=== PATIENT | male | born 1935 | race Caucasian/White ===

== ENCOUNTER 2016-11-27 18:27 | Emergency (ER) | payer BC ==
[~2016-11-27] VITALS: Ht 170.2 cm; Wt 77.7 kg
[~2016-11-27 18:27] MED LIST: ACYC400T PO; ASPEC81 PO; CALCTAB5 PO; CARB25TA12 PO; CARB50TA3 PO; CHOL100010 PO; CYCL5TAB PO; ROTI1DIS3 TOP
[2016-11-27 19:05] VITALS: TEMP 36.5; Ht 170.2 cm; Wt 77.7 kg
--- NOTE | 2016-11-27 20:08 | EMERGENCY ROOM VISIT NOTE ---
History Report prepared by Robbie: Tavo Sanders Under the Supervision of: Dr. Aimee Chambers M.D. First contact with patient: 19:52 Chief Complaint: RESPIRATORY PROBLEMS Stated Complaint: SOB, SAID CARDIAC ISSUE Nursing Triage Summary: Reports sob since 1600 History of Present Illness The patient is an 81 year old male who presents to the Emergency Room with complaints of intermittent shortness of breath that began at 1600, two hours prior to arrival. The patient states that he initially noticed being short of breath early this morning after swimming. But was not exerting himself when his SOB onset at 1600. Pt states he woke from a nap and noticed the increased WOB. He denies any chest or abdominal pain at anytime. He denies any cardiac history or failure, but does have a history of Parkinson's disease. 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 A total of 10 systems reviewed and were otherwise negative. 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) (5) Parkinsons disease (6) Waldenstrom macroglobulinemia Surgical Problems: (1) H/O arthroscopic knee surgery (2) S/P appendectomy Family History No pertinent family history Social History Smoking Status: Never Smoker Drug Use: none Marital Status: Housing Status: lives with significant other Occupation Status: retired Current/Historical Medications Scheduled Aspirin (Aspirin Ec), 81 MG PO DAILY Calcium Carbonate-Vitamin D (Calcium 600 + D), 1 TAB PO BID Carbidopa/Levodopa (Sinemet 25MG/100MG), 2 TABS PO QID Carbidopa/Levodopa (Sinemet Cr 50MG/200MG), 1 TAB PO HS Cholecalciferol (Vitamin D), 2,000 INTER.UNIT PO DAILY Clonazepam (Clonazepam), 0.5 MG PO HS Levofloxacin (Levaquin), 500 MG PO DAILY Rotigotine (Neupro), 3 MG TOP DAILY Selegiline Hcl (Eldepryl), 5 MG PO BID Allergies Coded Allergies: Penicillins (Verified Allergy, Mild, 08/21/14) Physical Exam Vital Signs Date Time Temp Pulse Resp B/P Pulse Ox O2 Delivery O2 Flow Rate FiO2 11/27/16 22:28 89 20 129/69 97 11/27/16 20:59 65 11/27/16 19:08 96 Room Air 11/27/16 19:05 36.5 82 16 133/84 96 Room Air Physical Exam Vital signs reviewed. General: Well-appearing elderly male, in no significant distress. HEENT: No scleral icterus, PERRLA, neck supple. Atraumatic. Cardiovascular: Implanted deep brain stimulator in chest. Regular rate and rhythm, no extra sounds. Pulmonary: Clear to auscultation bilaterally, normal work of breathing. Abdomen: Soft, nontender, nondistended, positive bowel sounds. Musculoskeletal: Atraumatic, no peripheral edema. Neurologic: Patient awake alert and oriented x 3. Flat facial expression, stiff movements with Parkinsonian like features. Skin: Warm, dry, no rash Medical Decision & Procedures ER Provider Diagnostic Interpretation: X-ray results as stated below per my interpretation and radiologist interpretation. Other radiology results as stated below per my review and radiologist interpretation: CHEST 2 VIEWS ROUTINE CLINICAL HISTORY: Shortness of breath. COMPARISON STUDY: Chest radiograph September 08, 2016. FINDINGS: An electronic device projecting of the left hemithorax is noted. Cardiomegaly is unchanged. There is no evidence of pulmonary edema. No pneumothorax or pleural effusion is present. There is apparent patchy right upper lung airspace opacity. This is new since prior exam. IMPRESSION: Mild right upper lung opacity which may reflect a small area of pneumonia. Post treatment radiographs are recommended to ensure resolution. Electronically signed by: Nhan Gallardo M.D. 11/27/2016 9:25 PM Dictated Date/Time: 11/27/2016 9:23 PM Laboratory Results 11/27/16 20:40 Red Blood Count 4.52, Mean Corpuscular Volume 96.5, Mean Corpuscular Hemoglobin 33.2, Mean Corpuscular Hemoglobin Concent 34.4, Mean Platelet Volume 10.4, Neutrophils (%) (Auto) 71.2, Lymphocytes (%) (Auto) 17.2, Monocytes (%) (Auto) 10.2, Eosinophils (%) (Auto) 0.9, Basophils (%) (Auto) 0.2, Neutrophils # (Auto ) 4.58, Lymphocytes # (Auto) 1.11, Monocytes # (Auto) 0.66, Eosinophils # (Auto ) 0.06, Basophils # (Auto) 0.01 11/27/16 20:40 Test 11/27/16 20:20 11/27/16 20:40 11/27/16 20:45 Urine Color YELLOW Urine Appearance CLEAR (CLEAR) Urine pH 6.0 (4.5-7.5) Urine Specific [place] 1.004 (1.000-1.030) Urine Protein NEG (NEG) Urine Glucose (UA) NEG (NEG) Urine Ketones NEG (NEG) Urine Occult Blood NEG (NEG) Urine Nitrite NEG (NEG) Urine Bilirubin NEG (NEG) Urine Urobilinogen NEG (NEG) Urine Leukocyte Esterase NEG (NEG) White Blood Count 6.44 K/uL (4.8-10.8) Red Blood Count 4.52 M/uL (4.7-6.1) Hemoglobin 15.0 g/dL (14.0-18.0) Hematocrit 43.6 % (42-52) Mean Corpuscular Volume 96.5 fL (80-100) Mean Corpuscular Hemoglobin 33.2 pg (25-34) Mean Corpuscular Hemoglobin Concent 34.4 g/dl (32-36) Platelet Count 210 K/uL (130-400) Mean Platelet Volume 10.4 fL (7.4-10.4) Neutrophils (%) (Auto) 71.2 % Lymphocytes (%) (Auto) 17.2 % Monocytes (%) (Auto) 10.2 % Eosinophils (%) (Auto) 0.9 % Basophils (%) (Auto) 0.2 % Neutrophils # (Auto) 4.58 K/uL (1.4-6.5) Lymphocytes # (Auto) 1.11 K/uL (1.2-3.4) Monocytes # (Auto) 0.66 K/uL (0.11-0.59) Eosinophils # (Auto) 0.06 K/uL (0-0.5) Basophils # (Auto) 0.01 K/uL (0-0.2) RDW Standard Deviation 45.6 fL (36.4-46.3) RDW Coefficient of Variation 13.0 % (11.5-14.5) Immature Granulocyte % (Auto) 0.3 % Immature Granulocyte # (Auto) 0.02 K/uL (0.00-0.02) Anion Gap 10.0 mmol/L (3-11) Est Creatinine Clear Calc Drug Dose 48.4 ml/min Estimated GFR () 72.1 Estimated GFR (Non- 62.2 BUN/Creatinine Ratio 20.5 (10-20) Calcium Level 9.2 mg/dl (8.5-10.1) Magnesium Level 2.2 mg/dl (1.8-2.4) Total Bilirubin 0.4 mg/dl (0.2-1) Direct Bilirubin 0.1 mg/dl (0-0.2) Aspartate Amino Transf (AST/SGOT) 21 U/L (15-37) Alanine Aminotransferase (ALT/SGPT) 9 U/L (12-78) Alkaline Phosphatase 96 U/L (45-117) Total Protein 7.8 gm/dl (6.4-8.2) Albumin 3.6 gm/dl (3.4-5.0) Lipase 57 U/L (73-393) Bedside Troponin I 0.000 ng/ml (0-0.045) [id number] Natriuretic Peptide 70 pg/ml (0-1800) Laboratory results per my review. Medications Administered Medications (Trade) Dose Ordered Sig/See Route Start Time Stop Time Status Last Admin Dose Admin Levofloxacin (Levaquin Tab) 500 mg NOW ONCE PO 11/27/16 22:00 11/27/16 22:01 DC 11/27/16 22:15 500 MG Levofloxacin (Levaquin Tab) 500 mg NOW STAT PO 11/27/16 21:58 11/27/16 22:00 DC 11/27/16 22:15 500 MG ECG Indication: SOB/dyspnea Rate (beats per minute): 64 Rhythm: normal sinus Findings: T-wave inversion (Anterior), no acute ischemic change, no ectopy, other (Poor quality baseline for interpretation secondary to deep brain stimulator) ED Course 1954: Past medical records reviewed. The patient was evaluated in room B4. A complete history and physical examination was performed. 2157: Ordered Levofloxacin 500 mg PO. 2221: Upon reevaluation, the patient appeared was resting in bed. His shortness of breath was relieved. I discussed findings with him. He verbalized agreement of the treatment plan. The patient was discharged home. Medical Decision Differential diagnosis: Etiologies such as infections, reactive airway disease, pneumonia, pneumothorax , COPD, CHF, cardiac ischemia, pulmonary embolism, musculoskeletal, gastrointestinal, as well as others were entertained. This pt was evaluated and appeared to be in no distress. PE is significant for Parkinsonian like features, but he otherwise appears well. Lab work reveals a normal WBC and negative cardiac enzymes. EKG reveals T wave inversions laterally. CXR is significant for a small infiltrate. Pt was given levaquin 500 mg po and 500 mg for tomorrow. A Rx was sent to Pharmacy for 5 more days. Pt was d/c to care of his and will f/u with PCP this week for reevaluation. He will return to the ED for worsening of symptoms or any medical concerns. Impression Primary Impression: Pneumonia Scribe Attestation The scribe's documentation has been prepared under my direction and personally reviewed by me in its entirety. I confirm that the note above accurately reflects all work, treatment, procedures, and medical decision making performed by me. Departure Information Dispostion Home / Self-Care Prescriptions Levofloxacin (Levaquin) 500 Mg Tab 500 MG PO DAILY for 5 Days, #5 TAB Prov: Aimee Chambers M.D. 11/27/16 Referrals No Doctor, Assigned (PCP) Forms HOME CARE DOCUMENTATION FORM, IMPORTANT VISIT INFORMATION, WORK / SCHOOL INSTRUCTIONS Patient Instructions My [facility] Additional Instructions Diagnosis: Pneumonia Levaquin 500 mg daily for 7 days total. Drink plenty of clear fluids. Follow-up with your physician later this week for reevaluation. You will require a repeat chest x-ray to ensure resolution of the pneumonia. Return to the emergency department for worsening of symptoms or any medical concerns. Problem Qualifiers Primary Impression: Pneumonia Pneumonia type: due to unspecified organism Laterality: right Lung location : upper lobe of lung Qualified Codes: J18.1 - Lobar pneumonia, unspecified organism
[2016-11-27 20:51] LABS: BASO % 0.2 %; BASO ABS # 0.01 K/uL (0-0.2); COMPLETE YES; EOS % 0.9 %; HEMATOCRIT 43.6 % (42-52); IG% 0.3 %; LYMPH % 17.2 %; LYMPH ABS # 1.11 K/uL (1.2-3.4); MEAN CELL VOLUME 96.5 fL (80-100); MEAN CORPUSCULAR HEMOGLOBIN 33.2 pg (25-34); MEAN CORPUSCULAR HGB CONC 34.4 g/dl (32-36); MEAN PLATELET VOLUME 10.4 fL (7.4-10.4); MONO % 10.2 %; NEUT % 71.2 %; PLATELET COUNT 210 K/uL (130-400); RED BLOOD COUNT 4.52 M/uL (4.7-6.1); WHITE BLOOD COUNT 6.44 K/uL (4.8-10.8)
[2016-11-27 20:56] LABS: URINE APPEARANCE CLEAR (CLEAR); URINE BILIRUBIN NEG (NEG); URINE COLOR YELLOW; URINE NITRITE NEG (NEG); URINE SPECIFIC GRAVITY 1.004 (1.000-1.030); UROBILINOGEN NEG (NEG); ZZUR CULT IF INDIC CLEAN CATCH NO
[2016-11-27 21:00] LABS: MANUAL MICROSCOPIC REQUIRED? NO; REVIEW REQ? NO
[2016-11-27] MEDS ORDERED: CHOL200010 PO (21:09)
[2016-11-27] MEDS ORDERED: ASPI81TA28 PO (21:09)
[2016-11-27] MEDS ORDERED: SELE5CAP2 PO (21:09)
[2016-11-27] MEDS ORDERED: CALC-20 PO (21:09)
[2016-11-27] MEDS ORDERED: KLN5X PO (21:09)
[2016-11-27 21:12] LABS: BUN/CREATININE RATIO 20.5 (10-20); CALCIUM 9.2 mg/dl (8.5-10.1); CREATININE 1.1 mg/dl (0.60-1.40); MAGNESIUM 2.2 mg/dl (1.8-2.4); POTASSIUM 4.2 mmol/L (3.5-5.1)
--- NOTE | 2016-11-27 21:26 | DIAGNOSTIC IMAGING REPORT ---
CHEST 2 VIEWS ROUTINE CLINICAL HISTORY: Shortness of breath. COMPARISON STUDY: Chest radiograph September 08, 2016. FINDINGS: An electronic device projecting of the left hemithorax is noted. Cardiomegaly is unchanged. There is no evidence of pulmonary edema. No pneumothorax or pleural effusion is present. There is apparent patchy right upper lung airspace opacity. This is new since prior exam. IMPRESSION: Mild right upper lung opacity which may reflect a small area of pneumonia. Post treatment radiographs are recommended to ensure resolution. Electronically signed by: Nhan Gallardo M.D. 11/27/2016 9:25 PM Dictated Date/Time: 11/27/2016 9:23 PM
[2016-11-27] MEDS ORDERED: LEVAQUIN 500MG / 100ML D5W IV ONE (21:45)
[2016-11-27] MEDS ORDERED: LEVOFLOXACIN 500 MG TAB PO STA (21:58)
[2016-11-27] MEDS ORDERED: LEVOFLOXACIN 250 MG TAB PO ONE (22:00)
[2016-11-27] MEDS ORDERED: LEVO-366 PO (22:07)
[2016-11-27 22:28] VITALS: BP 129/69; PULSE 89; O2SAT 97
== END 2016-11-27 22:20 | disposition home or self-care (01) ==
LOC: C.EDB 18:28
DX: J18.1 Lobar pneumonia, unspecified organism (principal); G20 Parkinson's disease; D47.2 Monoclonal gammopathy; Z85.72 Personal history of non-Hodgkin lymphomas; C88.0 Waldenstrom macroglobulinemia; Z79.82 Long term (current) use of aspirin; Z79.899 Other long term (current) drug therapy

== ENCOUNTER → 2016-12-25 | Outpatient (CLI) | payer BC ==
[~2016-12-25] MED LIST changes: -ACYC400T PO; -ASPEC81 PO; +ASPI81TA28 PO; +CALC-20 PO; -CALCTAB5 PO; -CHOL100010 PO; +CHOL200010 PO; -CYCL5TAB PO; +KLN5X PO; +SELE5CAP2 PO
--- NOTE | 2016-12-25 15:44 | DIAGNOSTIC IMAGING REPORT ---
CHEST 2 VIEWS ROUTINE HISTORY: COMMUNITY AQUIRED PNEUMONIA COMPARISON: Chest 11/27/2016. FINDINGS: Emphysema. No pleural effusions. No pneumothorax. The heart is mildly enlarged. Mild interstitial thickening at the lung bases. Irregular peripheral densities within the right upper lobe remain unchanged. Left-sided neurostimulator is again noted. IMPRESSION: No change in the small irregular peripheral densities within the right upper lobe. Recommend dedicated chest CT for further evaluation. Electronically signed by: Delano Jeffery M.D. 12/25/2016 3:42 PM Dictated Date/Time: 12/25/2016 3:41 PM
== END | disposition home or self-care (01) ==
LOC: C.RADBC 13:36
PROVIDERS: ATTEND Internal Medicine
DX: J18.9 Pneumonia, unspecified organism (principal); R91.8 Other nonspecific abnormal finding of lung field

== ENCOUNTER → 2016-12-29 | Outpatient (CLI) | payer BC ==
--- NOTE | 2016-12-29 17:03 | DIAGNOSTIC IMAGING REPORT ---
CT OF THE CHEST WITHOUT IV CONTRAST CLINICAL HISTORY: Community-acquired pneumonia. Abnormal chest radiograph. COMPARISON STUDY: Chest radiograph December 25, 2016 and November 27, 2016. CT DOSE: 530.59 mGycm TECHNIQUE: Axial images of the chest were obtained without IV contrast. Images were reviewed in the axial, sagittal, and coronal planes. IV contrast was not administered for this examination. FINDINGS: No enlarged axillary, mediastinal or hilar lymph nodes are present. An electronic device within the left chest wall is noted. The heart is moderately enlarged. Mild dilatation of the ascending aorta is unchanged since prior PET/CT of October 27, 2013. There is no pneumothorax or pleural effusion. Mild lower lobe opacities favor atelectasis. There is an indeterminate 4 mm right lower lobe nodule shown image 221 of 306. Note is made of a mixed groundglass and solid right upper lobe lesion that measures 3.1 x 2.1 cm. There are multiple adjacent irregular solid nodules that measure up to 1.8 cm, within the right upper lobe. These findings account for the abnormalities on prior chest radiographs. No suspicious osseous lesion is present. Unenhanced images of the upper abdomen demonstrate a left renal cyst. A hypodense 1.6 cm right adrenal nodule is unchanged since prior PET/CT. This is consistent with an adenoma. IMPRESSION: 1. 3.1 x 2.1 cm mixed solid and groundglass irregular right upper lobe lesion highly suggestive of a lung malignancy such as adenocarcinoma. Numerous adjacent irregular solid right upper lobe nodules suggestive of a neoplastic process. These could reflect satellite lesions. Pulmonary consultation is recommended. 2. No thoracic lymphadenopathy. Electronically signed by: Nhan Gallardo M.D. 12/29/2016 5:02 PM Dictated Date/Time: 12/29/2016 4:42 PM
== END | disposition home or self-care (01) ==
LOC: C.CTS 16:20
PROVIDERS: ATTEND Internal Medicine
DX: J18.9 Pneumonia, unspecified organism (principal); R91.8 Other nonspecific abnormal finding of lung field

== ENCOUNTER → 2017-01-08 | Outpatient (CLI) | payer BC ==
--- NOTE | 2017-01-08 12:33 | DIAGNOSTIC IMAGING REPORT ---
PET/CT HISTORY: Lymphoma. Pulmonary lesion. TECHNIQUE: PET/CT was performed from the base of the skull through the pelvis following the intravenous administration of mCi of F18-FDG. Non-contrast CT imaging was performed over the same range without breath-hold for attenuation correction of PET images and anatomic correlation, but not for primary interpretation as it is not of standard diagnostic quality. CT DOSE: COMPARISON: Chest CT 12/29/2016. PET CT 10/27/2013. FINDINGS: HEAD AND NECK: There is no FDG-avid disease or significant lymphadenopathy in the imaged portions of the head and the neck. CHEST: There is again noted an irregular 3.3 x 2.8 cm mass within the right upper lobe. This demonstrates mild FDG uptake with an SUV max of 1.8. There are least 6 additional nodules within the right upper lobe with the larger nodules demonstrating FDG uptake. The dominant 1.9 cm nodule demonstrates an SUV max of 2.7. No additional FDG avid nodules identified. Groundglass densities within the base of the right lower lobe at the periphery are new from the prior study. These demonstrate an SUV max of 2. This favors mild inflammatory/infectious change. The heart is enlarged. No enlarged or FDG avid mediastinal or hilar lymph nodes. ABDOMEN/PELVIS: Below the diaphragm, tracer is distributed physiologically in the gastrointestinal and genitourinary tracts. There is no significant lymphadenopathy and no FDG-avid disease. Right adrenal gland adenoma and left renal cyst remains stable. MUSCULOSKELETAL: There is no FDG-avid or destructive bone lesion. IMPRESSION: FDG avid 3.3 x 2.8 cm masslike opacity within the right upper lobe. There are also at least 6 additional right upper lobe nodules with the larger nodules demonstrate FDG uptake. Therefore, these findings are highly suspicious for a primary bronchogenic malignancy with metastatic satellite nodules. Electronically signed by: Delano Jeffery M.D. 01/08/2017 12:31 PM Dictated Date/Time: 01/08/2017 12:15 PM
== END | disposition home or self-care (01) ==
LOC: C.PET 08:24
PROVIDERS: ATTEND Internal Medicine
DX: R91.1 Solitary pulmonary nodule (principal); R91.8 Other nonspecific abnormal finding of lung field

== ENCOUNTER → 2017-02-06 | Outpatient (CLI) | payer BC ==
[2017-02-06 13:17] LABS: BASO % 0.2 %; BASO ABS # 0.01 K/uL (0-0.2); COMPLETE YES; EOS % 0.4 %; HEMATOCRIT 43.5 % (42-52); IG% 0.2 %; LYMPH % 21.8 %; LYMPH ABS # 1.24 K/uL (1.2-3.4); MEAN CELL VOLUME 98.2 fL (80-100); MEAN CORPUSCULAR HEMOGLOBIN 34.1 pg (25-34); MEAN CORPUSCULAR HGB CONC 34.7 g/dl (32-36); MEAN PLATELET VOLUME 10.8 fL (7.4-10.4); NEUT % 68.4 %; PLATELET COUNT 197 K/uL (130-400); RED BLOOD COUNT 4.43 M/uL (4.7-6.1); WHITE BLOOD COUNT 5.69 K/uL (4.8-10.8)
[2017-02-06 13:30] LABS: PROTHROMBIN TIME (PATIENT) 10.5 SECONDS (9.0-12.0)
[2017-02-06 14:31] LABS: BLOOD UREA NITROGEN 21 mg/dl (7-18); BUN/CREATININE RATIO 21.8 (10-20); CALCIUM 8.9 mg/dl (8.5-10.1); CARBON DIOXIDE 28 mmol/L (21-32); CHLORIDE 107 mmol/L (98-107); CREATININE 0.96 mg/dl (0.60-1.40); GLUCOSE 95 mg/dl (70-99); POTASSIUM 4.1 mmol/L (3.5-5.1); SODIUM 142 mmol/L (136-145)
== END | disposition home or self-care (01) ==
LOC: C.LABBC 10:30
PROVIDERS: ATTEND Physician Assistant
DX: I10 Essential (primary) hypertension (principal)

== ENCOUNTER → 2017-03-12 | Outpatient (CLI) | payer BC ==
[2017-03-12 14:44] LABS: ALT/SGPT 13 U/L (12-78); BLOOD UREA NITROGEN 15 mg/dl (7-18); BUN/CREATININE RATIO 15.4 (10-20); CALCIUM 9.3 mg/dl (8.5-10.1); CARBON DIOXIDE 27 mmol/L (21-32); CHLORIDE 104 mmol/L (98-107); GLUCOSE 99 mg/dl (70-99); POTASSIUM 4.1 mmol/L (3.5-5.1); SODIUM 138 mmol/L (136-145)
[2017-03-12 14:47] LABS: ALKALINE PHOSPHATASE 74 U/L (45-117); AST/SGOT 18 U/L (15-37)
[2017-03-12 16:56] LABS: BASO % 0.2 %; BASO ABS # 0.01 K/uL (0-0.2); COMPLETE YES; EOS % 0.7 %; HEMATOCRIT 44.7 % (42-52); IG% 0.4 %; LYMPH % 21.6 %; LYMPH ABS # 1.19 K/uL (1.2-3.4); MEAN CORPUSCULAR HEMOGLOBIN 33.1 pg (25-34); MEAN CORPUSCULAR HGB CONC 33.8 g/dl (32-36); MEAN PLATELET VOLUME 10.3 fL (7.4-10.4); MONO % 9.8 %; NEUT % 67.3 %; PLATELET COUNT 203 K/uL (130-400); RED BLOOD COUNT 4.56 M/uL (4.7-6.1); WHITE BLOOD COUNT 5.52 K/uL (4.8-10.8)
[2017-03-15 23:35] LABS: FREE KAPPA 68.9 MG/L (3.3-19.4); FREE KAPPA/LAMBDA RATIO 4.56 (0.26-1.65); FREE LAMBDA 15.1 MG/L (5.7-26.3)
== END | disposition home or self-care (01) ==
LOC: C.LABBC 10:30
PROVIDERS: ATTEND Nurse Practitioner
DX: C88.0 Waldenstrom macroglobulinemia (principal)

== ENCOUNTER → 2017-06-01 | Outpatient (CLI) | payer BC ==
--- NOTE | 2017-06-01 13:45 | DIAGNOSTIC IMAGING REPORT ---
CHEST 2 VIEWS ROUTINE CLINICAL HISTORY: WALDENSTROM'S MACROGLOBULINEMIA COMPARISON STUDY: 12/25/2016 FINDINGS: The heart is mildly enlarged. There is persistent aortic tortuosity. Underlying pulmonary emphysema is suspected. There is a 6 cm peripheral airspace opacity within the right upper lobe. This appears slightly more prominent than on the preceding study. Incidental note is made of a small hiatal hernia. Mild chronic fibrotic changes are also present within the lungs most pronounced the left lung base.[ A left-sided neurostimulator is again evident. IMPRESSION: Increased prominence of a 6 cm peripheral airspace opacity/mass within the right upper lobe. Electronically signed by: Niels Colindres M.D. 06/01/2017 1:43 PM Dictated Date/Time: 06/01/2017 1:41 PM
[2017-06-01 16:56] LABS: BASO % 0.2 %; BASO ABS # 0.01 K/uL (0-0.2); COMPLETE YES; EOS % 0.8 %; IG% 0.2 %; LYMPH ABS # 0.96 K/uL (1.2-3.4); MEAN CELL VOLUME 99.3 fL (80-100); MEAN CORPUSCULAR HEMOGLOBIN 34.5 pg (25-34); MEAN CORPUSCULAR HGB CONC 34.8 g/dl (32-36); MEAN PLATELET VOLUME 10.4 fL (7.4-10.4); MONO % 11.1 %; NEUT % 72.7 %; PLATELET COUNT 204 K/uL (130-400); RED BLOOD COUNT 4.23 M/uL (4.7-6.1)
[2017-06-01 17:06] LABS: ALT/SGPT 9 U/L (12-78); BLOOD UREA NITROGEN 19 mg/dl (7-18); BUN/CREATININE RATIO 21.9 (10-20); CALCIUM 9.3 mg/dl (8.5-10.1); CARBON DIOXIDE 27 mmol/L (21-32); CHLORIDE 103 mmol/L (98-107); CREATININE 0.88 mg/dl (0.60-1.40); GLUCOSE 114 mg/dl (70-99); POTASSIUM 4.2 mmol/L (3.5-5.1); SODIUM 137 mmol/L (136-145)
[2017-06-01 17:18] LABS: ALKALINE PHOSPHATASE 71 U/L (45-117); AST/SGOT 19 U/L (15-37)
[2017-06-04 11:48] LABS: FREE KAPPA 85.7 MG/L (3.3-19.4); FREE KAPPA/LAMBDA RATIO 5.32 (0.26-1.65); FREE LAMBDA 16.1 MG/L (5.7-26.3)
== END | disposition home or self-care (01) ==
LOC: C.RADBC 13:23
PROVIDERS: ATTEND Internal Medicine Hematology & Oncology
DX: C88.0 Waldenstrom macroglobulinemia (principal)

== ENCOUNTER 2017-12-25 12:16 | Emergency (ER) | payer OTHER ==
[~2017-12-25] VITALS: Ht 172.7 cm; Wt 84.0 kg
[2017-12-25 12:23] VITALS: TEMP 36.5; Ht 172.7 cm; Wt 84.0 kg
--- NOTE | 2017-12-25 14:23 | DIAGNOSTIC IMAGING REPORT ---
LUMBAR SPINE WITHOUT CLINICAL HISTORY: 82 years-old Male presenting with fall. TECHNIQUE: Multidetector CT of the lumbar spine was performed without the use of intravenous contrast. IV contrast: None. A dose lowering technique was used consistent with the principles of ALARA (as low as reasonably achievable). COMPARISON: PET/CT from 01/08/2017. CT DOSE (mGy.cm): The estimated cumulative dose is 638.03 mGycm. FINDINGS: Certified Recreational Therapist topogram: Unremarkable. Normal lumbar lordosis. Vertebral bodies maintain normal height and alignment. Intervertebral discs maintained. Osteopenia. Minimal degenerative change at L5-S1 with vacuum disc phenomenon. No osseous neural foraminal or spinal canal narrowing. No acute fracture or subluxation. Paraspinal soft tissues remarkable for tortuosity of the abdominal aorta. Exophytic left renal cyst suspected. Paraspinal musculature within normal limits. IMPRESSION: 1. No acute osseous injury of the lumbar spine. 2. No significant degenerative change. Electronically signed by: Jos Deluna M.D. 12/25/2017 2:22 PM Dictated Date/Time: 12/25/2017 2:19 PM
--- NOTE | 2017-12-25 14:37 | DIAGNOSTIC IMAGING REPORT ---
PELVIS 1 OR 2 VIEW ROUTINE CLINICAL HISTORY: 82 years-old Male presenting with fall. TECHNIQUE: Single frontal view of the pelvis was obtained. COMPARISON: PET/CT from 01/08/2017. FINDINGS: Sacroiliac joints, pubic symphysis, and hip joints congruent. Bony pelvis intact allowing for suspected osteopenia. Femoral necks intact. No advanced degenerative change. IMPRESSION: No acute osseous injury. Electronically signed by: Jos Deluna M.D. 12/25/2017 2:36 PM Dictated Date/Time: 12/25/2017 2:34 PM
--- NOTE | 2017-12-25 14:40 | DIAGNOSTIC IMAGING REPORT ---
CHEST ONE VIEW PORTABLE HISTORY: fall COMPARISON: Chest 06/01/2017. FINDINGS: No pneumothorax. No pleural effusions. The patient is right on this study. The heart remains mildly enlarged. Tortuous thoracic aorta. Patchy bibasilar densities have also progressed.. Left chest wall neurostimulator is noted. Patchy densities within the right upper lobe have progressed. However, this could be due to the overlapping soft tissue. Mild emphysema. IMPRESSION: 1. Patchy density within the right upper lobe have progressed. This corresponds the patient's right upper lobe mass/masses seen on the prior studies. There are 2. Progression of the patchy bibasilar densities. This may represent interstitial thickening or developing pneumonia. Electronically signed by: Delano Jeffery M.D. 12/25/2017 2:39 PM Dictated Date/Time: 12/25/2017 2:35 PM
--- NOTE | 2017-12-25 14:53 | EMERGENCY ROOM VISIT NOTE ---
History Report prepared by Robbie: Linda Moffett Under the Supervision of: Dr. Serjio Wilson D.O. First contact with patient: 13:22 Chief Complaint: FALL Stated Complaint: FALL/BACK PAIN History of Present Illness The patient is an 82 year old male who presents to the Emergency Room with complaints of an episode of fall at 0630 this morning. He presents to the ED by EMS. The patient was in the kitchen when he lost his balance and fell backwards onto his buttocks. He reports low back pain and chest pain since the fall. He has a history of Parkinson's. He used a cane to walk until recently it was recommended he use a walker. Source of History: patient Onset: 0630 Position: back (lower) Quality: other (fall) Timing: other (episodic) Associated Symptoms: + chest pain, + back pain Review of Systems See HPI for pertinent positives & negatives. A total of 10 systems reviewed and were otherwise negative. 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) (5) Parkinsons disease (6) Waldenstrom macroglobulinemia Surgical Problems: (1) H/O arthroscopic knee surgery (2) S/P appendectomy Family History No pertinent family history Social History Smoking Status: Never Smoker Drug Use: none Marital Status: Housing Status: lives with significant other Occupation Status: retired Current/Historical Medications Scheduled Aspirin (Aspirin Ec), 81 MG PO DAILY Calcium Carbonate-Vitamin D (Calcium 600 + D), 1 TAB PO BID Carbidopa/Levodopa (Sinemet 25MG/100MG), 2 TABS PO QID Carbidopa/Levodopa (Sinemet Cr 50MG/200MG), 1 TAB PO HS Cholecalciferol (Vitamin D), 2,000 INTER.UNIT PO DAILY Clonazepam (Clonazepam), 0.5 MG PO HS Rotigotine (Neupro), 3 MG TOP DAILY Selegiline Hcl (Eldepryl), 5 MG PO BID Allergies Coded Allergies: Penicillins (Verified Allergy, Mild, 01/29/17) Physical Exam Vital Signs Date Time Temp Pulse Resp B/P (MAP) Pulse Ox O2 Delivery O2 Flow Rate FiO2 12/25/17 14:01 61 16 138/83 12/25/17 12:23 36.5 74 18 148/93 95 Room Air Physical Exam CONSTITUTIONAL/VITAL SIGNS: Reviewed / noted above. GENERAL: Non-toxic in appearance. INTEGUMENTARY: Warm, dry, and [place]. HEAD: Normocephalic. EYES: without scleral icterus or trauma. ENT/OROPHARYNX: clear and moist. LYMPHADENOPATHY/NECK: Is supple without lymphadenopathy or meningismus. RESPIRATORY: Lungs clear and equal. CARDIOVASCULAR: Regular rate and rhythm. GI/ABDOMEN: Soft and nontender. No organomegaly or pulsatile mass. No rebound or guarding. Normal bowel sounds. EXTREMITIES: Warm and well perfused. BACK: Mild generalized low back tenderness, no obvious trauma. NEUROLOGICAL: Intact without focal deficits. PSYCHIATRIC: normal affect. MUSCULOSKELETAL: Normally developed with good muscle tone. Medical Decision & Procedures ER Provider Diagnostic Interpretation: X ray results and stated below per my interpretation and radiology interpretation. Radiology results as stated below per my review and radiologist interpretation: CHEST ONE VIEW PORTABLE HISTORY: fall COMPARISON: Chest 06/01/2017. FINDINGS: No pneumothorax. No pleural effusions. The patient is right on this study. The heart remains mildly enlarged. Tortuous thoracic aorta. Patchy bibasilar densities have also progressed.. Left chest wall neurostimulator is noted. Patchy densities within the right upper lobe have progressed. However, this could be due to the overlapping soft tissue. Mild emphysema. IMPRESSION: 1. Patchy density within the right upper lobe have progressed. This corresponds the patient's right upper lobe mass/masses seen on the prior studies. There are 2. Progression of the patchy bibasilar densities. This may represent interstitial thickening or developing pneumonia. Electronically signed by: Delano Jeffery M.D. 12/25/2017 2:39 PM Dictated Date/Time: 12/25/2017 2:35 PM PELVIS 1 OR 2 VIEW ROUTINE CLINICAL HISTORY: 82 years-old Male presenting with fall. TECHNIQUE: Single frontal view of the pelvis was obtained. COMPARISON: PET/CT from 01/08/2017. FINDINGS: Sacroiliac joints, pubic symphysis, and hip joints congruent. Bony pelvis intact allowing for suspected osteopenia. Femoral necks intact. No advanced degenerative change. IMPRESSION: No acute osseous injury. Electronically signed by: Jos Deluna M.D. 12/25/2017 2:36 PM Dictated Date/Time: 12/25/2017 2:34 PM LUMBAR SPINE WITHOUT CLINICAL HISTORY: 82 years-old Male presenting with fall. TECHNIQUE: Multidetector CT of the lumbar spine was performed without the use of intravenous contrast. IV contrast: None. A dose lowering technique was used consistent with the principles of ALARA (as low as reasonably achievable). COMPARISON: PET/CT from 01/08/2017. CT DOSE (mGy.cm): The estimated cumulative dose is 638.03 mGycm. 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 Normal lumbar lordosis. Vertebral bodies maintain normal height and alignment. Intervertebral discs maintained. Osteopenia. Minimal degenerative change at L5-S1 with vacuum disc phenomenon. No osseous neural foraminal or spinal canal narrowing. No acute fracture or subluxation. Paraspinal soft tissues remarkable for tortuosity of the abdominal aorta. Exophytic left renal cyst suspected. Paraspinal musculature within normal limits. IMPRESSION: 1. No acute osseous injury of the lumbar spine. 2. No significant degenerative change. Electronically signed by: Jos Deluna M.D. 12/25/2017 2:22 PM Dictated Date/Time: 12/25/2017 2:19 PM ED Course 1333: Previous medical records were reviewed. The patient was evaluated in room A12B. A complete history and physical examination was performed. 1447: On reevaluation, the patient is resting comfortably. I discussed the results and findings with the patient. He verbalized agreement of the treatment plan. He was discharged home. Medical Decision Differentials include: Close head injury, intracranial bleed, facial trauma, cervical spine trauma, chest and thoracic trauma, abdominal and intra-abdominal trauma, spine neurologic trauma, and extremity trauma. This is an 82-year-old male who presents to the ED with a chief complaint of a fall. The patient states that he was reaching for a glass when he lost his balance and fell backwards onto his buttocks area. He denies striking his head. Denies loss of consciousness. He does have balance issues as a result of Parkinson's disease. He has a brain stimulator for this. His doctor has recently recommended that he start using a walker instead of his cane. Done so yet according to the . The patient has complaints of pain mainly in his low back region. He also complains of some mild discomfort in his chest since the fall. The patient's physical exam did not reveal any obvious bony trauma. CAT scan of the lumbar region did not reveal acute traumatic injury. X-rays of the chest and pelvis did not reveal any acute traumatic pathology. The patient does have known lung cancer. The patient was told the results. He has not had any respiratory symptoms to suggest early pneumonia. He is felt to be stable for discharge. Tylenol or Motrin was recommended. Medication Reconcilliation Current Medication List: was personally reviewed by me Blood Pressure Screening Patient's blood pressure: Elevated blood pressure Blood pressure disposition: Elevated BP felt to be situational Impression Primary Impression: Fall Additional Impression: Contusion of multiple sites Scribe Attestation The scribe's documentation has been prepared under my direction and personally reviewed by me in its entirety. I confirm that the note above accurately reflects all work, treatment, procedures, and medical decision making performed by me. Departure Information Referrals RV. Gomez MD (PCP) Patient Instructions My [facility] Additional Instructions Take Tylenol or Motrin as needed for pain. Follow-up with your doctor for further care and evaluation in 1-2 days. Return to the emergency department for worsening or new symptoms or any concerns. You have been examined and treated today on an emergency basis only. This is not a substitute for, or an effort to provide, complete comprehensive medical care. It is impossible to recognize and treat all injuries or illnesses in a single emergency department visit. It is therefore important that you follow up closely with your doctor. Call as soon as possible for an appointment. Problem Qualifiers
[2017-12-25 15:08] VITALS: BP 149/91; PULSE 66; O2SAT 95
== END 2017-12-25 15:09 | disposition home or self-care (01) ==
LOC: EDBD 12:16 → C.EDA 12:16
DX: T14.8XXA Other injury of unspecified body region, initial encounter (principal); W19.XXXA Unspecified fall, initial encounter; G20 Parkinson's disease; D47.2 Monoclonal gammopathy; C88.0 Waldenstrom macroglobulinemia; Z79.82 Long term (current) use of aspirin; Z79.899 Other long term (current) drug therapy; Z85.72 Personal history of non-Hodgkin lymphomas; Z88.0 Allergy status to penicillin

== ENCOUNTER 2019-04-03 12:20 | Inpatient (IN) ==
[2019-04-03] MEDS ORDERED: VANCOMYCIN CONSULT ACTIVE PRN (12:48)
[2019-04-03] MEDS ORDERED: CLINDAMYCIN 600 MG in DEXTROSE 5% 50 ML IV ONE (12:48)
[2019-04-03] MEDS ORDERED: CEFEPIME 2,000 MG/20 ML VIAL IV STA (12:48)
[2019-04-03] MEDS ORDERED: VANCOMYCIN HCL 1,500 MG in SODIUM CHLORIDE 0.9% 500 ML IV ONE (12:48)
--- NOTE | 2019-04-03 13:12 | XRay Report ---
XR chest 1V portable CLINICAL HISTORY: weakness dyspnea COMPARISON STUDY: 03/25/2019 FINDINGS: Some progressive consolidative change right apical region. Increasing density right and to lesser extent left base. The mid and upper aspects left lung remain clear. Bilateral stimulator packs are again noted. IMPRESSION: Mildly progressive consolidative change right upper and right basilar pulmonary region. Unchanging parenchymal density left lung base. The above report was generated using voice recognition software. It may contain grammatical, syntax or spelling errors. Electronically signed by: Bunny Ryan M.D. 04/03/2019 1:11 PM
[2019-04-03 13:38] LABS: Basophils # (auto) 0.02 K/uL (0-0.2); Basophils % (auto) 0.2 %; Eosinophils # (auto) 0.03 K/uL (0-0.5); Eosinophils % (auto) 0.3 %; Hematocrit (blood only) 46.3 % (42-52); Hemoglobin 16.6 g/dL (14.0-18.0); Immature Granulocytes # (auto) 0.03 K/uL (0.00-0.02); Immature Granulocytes % (auto) 0.3 %; Lymphocytes # (auto) 0.97 K/uL (1.2-3.4); Lymphocytes % (auto) 9.9 %; Mean Corpuscular Hgb Conc 35.9 g/dL (32-36); Mean Corpuscular Volume 100.7 fL (80-100); Mean Platelet Volume 10.1 fL (7.4-10.4); Monocytes # (auto) 1.04 K/uL (0.11-0.59); Monocytes % (auto) 10.6 %; Neutrophils # (auto) 7.71 K/uL (1.4-6.5); Neutrophils % (auto) 78.7 %; Platelet Count 240 K/uL (130-400); RDW Coefficient of Variation 12.7 % (11.5-14.5); RDW Standard Deviation 46.1 fL (36.4-46.3)
[2019-04-03 14:09] LABS: Chloride 104 mmol/L (98-107); Potassium 3.9 mmol/L (3.5-5.1); Sodium 137 mmol/L (136-145)
[2019-04-03 14:10] LABS: Anion Gap 4 (3-11); BUN Creatinine Ratio 17.7 (10-20); Blood Urea Nitrogen 20 mg/dl (7-18); Carbon Dioxide 29 mmol/L (21-32); Est GFR (African American) 68.8; Est GFR (Non-African American) 59.4
[2019-04-03 14:11] LABS: Alanine Aminotransferase 9 U/L (12-78); Albumin Level 3.3 gm/dl (3.4-5.0); Aspartate Aminotransferase 29 U/L (15-37); Bilirubin,Total 0.5 mg/dl (0.2-1); Calcium 9.7 mg/dl (8.5-10.1); Globulin 4.9 gm/dl (2.5-4.0); Glucose 136 mg/dl (70-99); Magnesium 2.3 mg/dl (1.8-2.4); Total Protein 8.2 gm/dl (6.4-8.2); Troponin I < 0.015 ng/ml (0-0.045)
[2019-04-03 14:12] LABS: Albumin Globulin Ratio 0.7 (0.9-2); Alkaline Phosphatase 118 U/L (45-117)
[2019-04-03] MEDS ORDERED: OPTIRAY 320 125ml IV PRN (14:54)
--- NOTE | 2019-04-03 15:16 | CT Scan Report ---
CT angio chest PE protocol CLINICAL HISTORY: 83 years-old Male presenting with MN ^CTR RM C10 ^hypoxia, h/o cancer, RUL mass, ?pneumonia. TECHNIQUE: Multidetector CT angiography of the chest was performed after administration of intravenou s contrast. 3-D volumetric and/or maximum intensity projection (MIP) images were subsequently reconst ructed for review. IV contrast: 120 mL of Optiray 320. One or more dose lowering techniques were used consistent with the principles of ALARA (as low as reasonably achievable), including automatic expos ure control, mA or kV adjustment to individual patient size, and/or use of iterative reconstruction. COMPARISON: Chest CT from 12/29/2016. CT DOSE (mGy.cm): The estimated cumulative dose is 383.96 mGy.cm. FINDINGS: Pharmacology Professor topogram: Implanted medical lab tech instructor projects over the left upper lung with leads coursing to the neck. Extensive right lung infiltrates. Pulmonary vasculature: The study is suboptimal for the assessment of the pulmonary vascular tree secondary to respiratory mo tion artifact. No filling defect within the pulmonary arteries to suggest embolus. Limited evaluation of the left lung base. Main pulmonary artery is not enlarged. Flattening of the interventricular sep luciana with right heart enlargement . No reflux of contrast into the hepatic veins. Remaining chest: Soft tissues: Normal thyroid and thoracic inlet. No axillary, supraclavicular, mediastinal, or hilar lymphadenopathy. Atherosclerosis of the aorta. Right heart enlargement. Coronary artery calcification . No pericardial or pleural effusion. Renal cysts. Lungs and airways: Extensive multifocal primarily solid consolidation extensively involving the right lung and in a peribronchial vascular distribution involving the superior segment of the lingula and left lung base. Debris noted in the upper trachea. Pulmonary arteries are not significantly enlarged relative to adjacent bronchi. No interlobular septal thickening. Musculoskeletal: Degenerative changes of the spine. Mild vertebral body compression deformity of T12, new from prior. IMPRESSION: 1. Allowing for suboptimal image quality, no evidence of pulmonary embolus. 2. Extensive consolidation throughout the right lung and to a lesser degree in the left lung base an d lingula. This is most concerning for multifocal pneumonia. This should be followed to resolution. D ifferential considerations include mucinous adenocarcinoma and lymphoma. Bronchoscopy could be consid ered. 3. Right heart enlargement. 4. New compression deformity of T12. Correlate with point tenderness to assess for acuity. Electronically signed by: Jos Deluna M.D. 04/03/2019 3:14 PM
[2019-04-03 16:20] LABS: Appearance Urine Clear (Clear); Bilirubin Urine Negative (Negative); Blood Urine Negative (Negative); Color Urine Yellow; Glucose Urine UA Negative (Negative); Ketones Urine Negative (Negative); Leukocyte Esterase Urine Negative (Negative); Nitrite Urine Negative (Negative); Protein Urine Negative (Negative); Specific Gravity Urine 1.033 (1.000-1.030); Urobilinogen Urine Negative (Negative)
--- NOTE | 2019-04-03 17:21 | History & Physical Report ---
Date of Service April 03, 2019 Assessment & Plan (1) Hypoxia: Multifocal PNA and lung mass as noted on imaging O2 as needed No hx of home O2 use (2) Pneumonia: Started on cefepime in the ED, will continue WBC WNL, afebrile (3) Lung cancer: Known mass with decision to monitor No hx of chemo/radiation per pt preference states they have declined bronch in the past due to risk of further damage to vocal cords in the setting of Parkinson's Follows with Dr. Garduno in the outpt, will hold on c/s for now given prior decisions to not pursue tx. This can be re-evaluated if needed Holding on pulm c/s as well due to prior decline and current wish to avoid bronch Discussed trial of abx to see if pt can improve without intervention (4) Parkinsons disease: continue home meds Pt has a complicated schedule of medications with clear instructions from (5) GERD (gastroesophageal reflux disease): continue home meds (6) DVT prophylaxis: SCDs, Lovenox for DVT proph History of Present Illness Primary Care Provider: Aureliano Banegas MD 83 y/o M who was sent to the ED by Dr. Garduno after being found to have low O2 sats in the office. Pt had followed with Dr. Garcia until he retired for a lung mass that was being monitored but pt and had decided to not pursue chemo or radiation. He had then been being followed by Chitra Capellan. Today, pt was seen for a routine appt with Dr. Garduno. This was their first appt with him. It was noted that pt was a bit SOB with prolonged walking to the exam room and O2 sats were checked. He was found to be in the mid 80s. Pt and both state that pt has had no SOB at home, either at rest or with ambulation. He ambulates with a walker, but states that they have a small home without stairs due to the mobility issues and so pt's usual ambulation is minimal. Pt has felt well overall. They had noted that he was having some "gurgling noises" in his upper throat when he would wake in the AM or from a nap, but these clear after he works on clearing his throat for several minutes. He has no issues swallowing food or choking. Pt denies fever, SOB, chest pain, abd pain, n/v/c/d, LE pain or swelling. states that they have denied what sounds like a bronchoscopy in the past due to concern over damage to his vocal cords in the setting of Parkinsons. Allergies Allergy/AdvReac Type Severity Reaction Status Date / Time Penicillins Allergy Mild Verified 03/28/18 15:11 benztropine [From Cogentin] Allergy Confusion Unverified 04/03/19 13:44 entacapone [From Comtan] Allergy Unknown Unverified 04/03/19 13:44 Home Medications Home Medications Medication Instructions Recorded Confirmed Type aspirin [Aspirin Low Dose] 81 mg PO DAILY 04/03/19 04/03/19 History bisacodyl [Dulcolax (bisacodyl)] 10 mg SC DAILY 04/03/19 04/03/19 History calcium carbonate-vitamin D3 1 tab PO DAILY 04/03/19 04/03/19 History [Calcium 500 + D] carbidopa-levodopa 1 tab PO HS 04/03/19 04/03/19 History carbidopa-levodopa 1 tab PO QID 04/03/19 04/03/19 History carbidopa-levodopa 2 tab PO QID 04/03/19 04/03/19 History cholecalciferol (vitamin D3) 2,000 unit PO DAILY 04/03/19 04/03/19 History [Vitamin D3] clonazepam 0.5 mg PO HS 04/03/19 04/03/19 History docusate sodium [Colace] 100 mg PO BID 04/03/19 04/03/19 History pantoprazole 20 mg PO DAILY 04/03/19 04/03/19 History rotigotine [Neupro] 1 patch TRANSDERMAL DAILY 04/03/19 04/03/19 History selegiline HCl 5 mg PO BID 04/03/19 04/03/19 History Past Med/Surg History Medical History Parkinson disease (Chronic) Family History Father Lung cancer Social History Feels Safe at Home: Yes Smoking Status: Never smoker Hx Alcohol Use: Yes Alcohol Intake Frequency Comment: occasional beer or wine Hx Substance Use: No Review of Systems Review of Systems: Pertinent positives and negatives reviewed in HPI--all others negative Physical Exam Constitutional: WD/WN, vitals as above Eyes: normal visual corbett by confrontation and + anicteric sclerae Neck: normal visual inspection and trachea midline Respiratory: normal respiratory effort; no respiratory distress Auscultat ion: + crackles; no wheezes Cardiovascular: Rate/Rhythm: regular rate and regular rhythm Gastrointestinal (Abdomen): Inspection/Auscultation: abdomen not distended Percussion/Palpation: abdomen soft; abdomen nontender Musculoskeletal: Head/Neck/Chest: normocephalic and head atraumatic negative for edema, peripheral pulses intact Skin: no rashes, warm and dry Neurologic: awake; not confused Pt is difficult to understand at times, c/w vocal cord decline seen in Parkinson's Psychiatric: A+Ox3, euthymic affect Results & Data Vital Signs (Past 12 Hours) Vital Signs Temp Pulse Pulse Resp BP BP Pulse Ox 04/03/19 17:01 76 22 95 04/03/19 17:00 80 25 H 152/98 H 98 04/03/19 16:50 80 20 96 04/03/19 16:40 80 32 H 96 04/03/19 16:30 75 31 H 97 04/03/19 16:20 81 24 97 04/03/19 16:10 78 19 92 04/03/19 16:01 83 21 96 04/03/19 16:00 77 21 158/95 H 95 04/03/19 15:50 84 23 97 04/03/19 15:40 85 37 H 97 04/03/19 15:31 84 32 H 171/101 H 96 04/03/19 15:30 83 29 H 96 04/03/19 15:20 87 34 H 97 04/03/19 15:10 80 24 96 04/03/19 15:00 80 28 H 92 04/03/19 14:40 75 23 92 04/03/19 14:38 81 26 H 145/86 H 97 04/03/19 14:31 75 25 H 93 04/03/19 14:30 76 24 145/86 H 91 04/03/19 14:20 75 27 H 93 04/03/19 14:10 76 21 90 04/03/19 14:01 77 25 H 90 04/03/19 14:00 72 76 23 135/73 135/73 90 07/18/19 13:50 77 25 H 92 04/03/19 13:40 76 29 H 92 04/03/19 13:32 77 25 H 130/105 H 90 04/03/19 13:30 80 25 H 94 04/03/19 13:20 85 26 H 04/03/19 13:10 81 30 H 04/03/19 13:01 81 04/03/19 13:00 83 130/92 94 04/03/19 12:51 85 21 91 04/03/19 12:50 90 04/03/19 12:49 85 26 H 125/83 91 04/03/19 12:44 86 27 H 04/03/19 12:29 36.4 C L 74 20 123/71 82 L Diagnostic Findings CXR: Mildly progressive consolidative change right upper and right basilar pulmonary region. Unchanging parenchymal density left lung base. CTA: 1. Allowing for suboptimal image quality, no evidence of pulmonary embolus. 2. Extensive consolidation throughout the right lung and to a lesser degree in the left lung base and lingula. This is most concerning for multifocal pneumonia. This should be followed to resolution. Differential considerations include mucinous adenocarcinoma and lymphoma. Bronchoscopy could be considered. 3. Right heart enlargement. 4. New compression deformity of T12. Correlate with point tenderness to assess for acuity. ECG Rhythm: normal sinus Code Status & VTE Plan Code Status Pt was quite definite that he does not want intubated. He was uncertain about cardiac resuscitation. He did ultimately decide that he would want this. Living Will does state DNR/DNI if incapacitated. I discussed the differences between code status and living will. They will alert nursing if they would like his cardiac status changed. VTE Prophylaxis Plan VTE Prophylaxis will be ordered: Yes PG Care Time/CCT Total # of Minutes Spent Total Time Spent with Patient: Total time spent is greater than 50% in coordination of care (as documented) at patient's floor/unit and/or counseling patient: (1) Pneumonia Laterality: right Lung location: upper lobe of lung Pneumonia type: due to unspecified organism Qualified Code(s): J18.1 - Lobar pneumonia, unspecified organism (2) Lung cancer Laterality: right Lung location: middle lobe of lung Qualified Code(s): C34.2 - Malignant neoplasm of middle lobe, bronchus or lung
--- NOTE | 2019-04-03 18:01 | Emergency Department Note ---
Entered by Adrianne Carlton acting as a scribe for Ruben Canseco MD ED Provider Note CHIEF COMPLAINT: Shortness of breath HISTORY OF PRESENT ILLNESS: The patient is a 83 year old who presents to the Emergency Room with complaints of shortness of breath. The patient states that his shortness of breath started 2 weeks ago and has worsened recently. He notes that he was referred by his oncologist, Dr. Ferrari who he saw today. Patient was short of breath, diaphoretic and hypoxic in the office. No medication was given. The patient denies wearing oxygen at home. He reports that he has been experiencing constipation. He states that he has had a mild cough, fever, and chills that started yesterday. Pt denies LOC, headache, , visual changes, neck pain, chest pain, nausea, vomiting, abdominal pain, back pain, melena, hematochezia, urinary symptoms, numbness, weakness, lymphadenopathy, rash, or other complaints. The patient's notes that she has a history of Parkinson's disease. REVIEW OF SYSTEMS: See HPI for pertinent positives and negatives. A total of ten systems were reviewed and were otherwise negative. PMHx/PSHx: Parkinson's Disease. SOCIAL HISTORY: Patient lives at home. PHYSICAL EXAM: GENERAL: Awake, alert, well-appearing, in no distress HENT: Normocephalic, atraumatic. Oropharynx unremarkable. EYES: PERRL. Normal conjunctiva. Sclera non-icteric. NECK: Inspection normal. Non-tender. Supple. No nuchal rigidity. FROM. No masses. RESPIRATORY: Diminished breath sounds on right. Scattered bilaterally, but worse on left. No wheezes. No rales. Moderate increased work of breathing. CARDIAC: Normal rate. Normal rhythm. No murmurs. No rubs. Extremities warm and well perfused. Pulses equal. No JVD. GI: Soft, non-distended. No tenderness to palpation. No rebound or guarding. No masses. RECTAL: Deferred. MUSCULOSKELETAL: Atraumatic. Chest examination reveals no tenderness. The back is symmetrical on inspection without obvious abnormality. There is no CVA tenderness to palpation. No joint edema. LOWER EXTREMITIES: Calves are equal size bilaterally and non-tender. No edema. No discoloration. NEURO: Normal sensorium. No sensory or motor deficits noted. SKIN: No rash or jaundice noted. EMERGENCY DEPARTMENT COURSE: 1210: I discussed the patient's case with Dr. Obregon- [facility], who referred the patient to the ED. 1246: Past medical records reviewed. The patient was evaluated in room C10, and a complete history and physical examination were performed. 1531: I reevaluated the patient and updated him on his results, he is stable. I discussed the patient's case with Dr. Herrera- [facility] Hospitalist, he will further evaluate the patient. MEDICAL DECISION MAKING: Prior records/ancillary studies reviewed. Triage Nursing notes reviewed and agree them. Additional history obtained from Dr. Ferrari, his oncologist.. The patient's history was concerning for fever and an abnormal chest x-ray. Differential diagnosis: Etiologies such as postobstructive infection, malignancy, pneumonia, influenza,meningitis, urinary tract infection, sepsis, bacteremia, viral syndrome, as well as others were entertained. Physical examination: Patient was ill-appearing with hypoxia noted. ER treatment provided: Cardiac monitoring High flow oxygen IV cefepime IV clindamycin IV vancomycin On reassessment the patient felt better. Diagnostics interpreted by me: ECG: No acute ischemia The labs revealed an unremarkable CBC and chemistry panel. Troponin negative. Imaging studies: Chest x-ray concerning for right-sided mass and pneumonia. CT imaging of the chest reveals a multifocal pneumonia but mass is also considered. No pulmonary embolus. Consultation: A consultation was placed with the hospitalist service, Dr. Herrera. The case was discussed and diagnostics were reviewed. The patient was evaluated in the ER for further treatment. IMPRESSION: Hypoxia, pneumonia, lung cancer. PLAN: Admitted The scribe's documentation has been prepared under my direction and personally reviewed by me in its entirety. I confirm that the note above accurately reflects all work, treatment, procedures, and medical decision making performed by me. CRITICAL CARE: I have personally spent greater than 30 minutes of critical care time in the direct management of this patient. This includes bedside care, interpretation of diagnostic studies, and testing, discussion with consultants, patient, and family members, and other required patient management activities. This 30 minutes is in excess of all separately billable procedures. Impression & Plan Hypoxia, Pneumonia, Lung cancer Past Med/Surg History Medical History Parkinson disease (Chronic) Family History Father Lung cancer Social History Feels Safe at Home: Yes Smoking Status: Never smoker Hx Alcohol Use: Yes Alcohol Intake Frequency Comment: occasional beer or wine Hx Substance Use: No Results & Data Vital Signs Vital Signs - 24 hr 04/03/19 12:29 04/03/19 12:44 04/03/19 12:49 Temperature 36.4 C L Temperature Source Oral Sepsis Recent Fever Within 48 Hours No Sepsis New/Unexplained Change in Mental Status No Sepsis Action Taken by Nursing No Action Required Pulse Rate 74 86 85 Pulse Rate [Apical] Pulse Rate from SpO2 Sensor 84 82 Respiratory Rate 20 27 H 26 H Blood Pressure 123/71 125/83 Blood Pressure [Left Arm] Blood Pressure Mean 88 97 Blood Pressure Mean [Left Arm] Blood Pressure Position Sitting Pulse Oximetry 82 L 91 Oxygen Delivery Method Oxymask Oxygen Flow Rate 10 04/03/19 12:50 04/03/19 12:51 04/03/19 13:00 Temperature Temperature Source Sepsis Recent Fever Within 48 Hours Sepsis New/Unexplained Change in Mental Status Sepsis Action Taken by Nursing Pulse Rate 85 83 Pulse Rate [Apical] Pulse Rate from SpO2 Sensor 72 78 Respiratory Rate 21 Blood Pressure 130/92 Blood Pressure [Left Arm] Blood Pressure Mean 104 Blood Pressure Mean [Left Arm] Blood Pressure Position Pulse Oximetry 90 91 94 Oxygen Delivery Method Oxymask Oxymask Oxymask Oxygen Flow Rate 10 10 10 04/03/19 13:01 04/03/19 13:10 04/03/19 13:20 Temperature Temperature Source Sepsis Recent Fever Within 48 Hours Sepsis New/Unexplained Change in Mental Status Sepsis Action Taken by Nursing Pulse Rate 81 81 85 Pulse Rate [Apical] Pulse Rate from SpO2 Sensor Respiratory Rate 30 H 26 H Blood Pressure Blood Pressure [Left Arm] Blood Pressure Mean Blood Pressure Mean [Left Arm] Blood Pressure Position Pulse Oximetry Oxygen Delivery Method Oxymask Oxygen Flow Rate 10 04/03/19 13:30 04/03/19 13:32 04/03/19 13:40 Temperature Temperature Source Sepsis Recent Fever Within 48 Hours Sepsis New/Unexplained Change in Mental Status Sepsis Action Taken by Nursing Pulse Rate 80 77 76 Pulse Rate [Apical] Pulse Rate from SpO2 Sensor 72 71 73 Respiratory Rate 25 H 25 H 29 H Blood Pressure 130/105 H Blood Pressure [Left Arm] Blood Pressure Mean 113 Blood Pressure Mean [Left Arm] Blood Pressure Position Pulse Oximetry 94 90 92 Oxygen Delivery Method Oxygen Flow Rate 04/03/19 13:50 04/03/19 14:00 04/03/19 14:01 Temperature Temperature Source Sepsis Recent Fever Within 48 Hours Sepsis New/Unexplained Change in Mental Status Sepsis Action Taken by Nursing Pulse Rate 77 72 77 Pulse Rate [Apical] 76 Pulse Rate from SpO2 Sensor 78 72 77 Respiratory Rate 25 H 23 25 H Blood Pressure 135/73 Blood Pressure [Left Arm] 135/73 Blood Pressure Mean 93 Blood Pressure Mean [Left Arm] 93 Blood Pressure Position Pulse Oximetry 92 90 90 Oxygen Delivery Method Oxymask Oxygen Flow Rate 14 04/03/19 14:10 04/03/19 14:20 04/03/19 14:30 Temperature Temperature Source Sepsis Recent Fever Within 48 Hours Sepsis New/Unexplained Change in Mental Status Sepsis Action Taken by Nursing Pulse Rate 76 75 76 Pulse Rate [Apical] Pulse Rate from SpO2 Sensor 76 75 73 Respiratory Rate 21 27 H 24 Blood Pressure 145/86 H Blood Pressure [Left Arm] Blood Pressure Mean 105 Blood Pressure Mean [Left Arm] Blood Pressure Position Pulse Oximetry 90 93 91 Oxygen Delivery Method Oxygen Flow Rate 04/03/19 14:31 04/03/19 14:38 04/03/19 14:40 Temperature Temperature Source Sepsis Recent Fever Within 48 Hours Sepsis New/Unexplained Change in Mental Status Sepsis Action Taken by Nursing Pulse Rate 75 75 Pulse Rate [Apical] 81 Pulse Rate from SpO2 Sensor 75 75 Respiratory Rate 25 H 26 H 23 Blood Pressure Blood Pressure [Left Arm] 145/86 H Blood Pressure Mean Blood Pressure Mean [Left Arm] 105 Blood Pressure Position Pulse Oximetry 93 97 92 Oxygen Delivery Method Oxymask Oxygen Flow Rate 12 04/03/19 15:00 04/03/19 15:10 04/03/19 15:20 Temperature Temperature Source Sepsis Recent Fever Within 48 Hours Sepsis New/Unexplained Change in Mental Status Sepsis Action Taken by Nursing Pulse Rate 80 80 87 Pulse Rate [Apical] Pulse Rate from SpO2 Sensor 79 78 84 Respiratory Rate 28 H 24 34 H Blood Pressure Blood Pressure [Left Arm] Blood Pressure Mean Blood Pressure Mean [Left Arm] Blood Pressure Position Pulse Oximetry 92 96 97 Oxygen Delivery Method Oxygen Flow Rate 04/03/19 15:30 04/03/19 15:31 04/03/19 15:40 Temperature Temperature Source Sepsis Recent Fever Within 48 Hours Sepsis New/Unexplained Change in Mental Status Sepsis Action Taken by Nursing Pulse Rate 83 84 85 Pulse Rate [Apical] Pulse Rate from SpO2 Sensor 83 84 83 Respiratory Rate 29 H 32 H 37 H Blood Pressure 171/101 H Blood Pressure [Left Arm] Blood Pressure Mean 124 Blood Pressure Mean [Left Arm] Blood Pressure Position Pulse Oximetry 96 96 97 Oxygen Delivery Method Oxygen Flow Rate 04/03/19 15:50 04/03/19 16:00 04/03/19 16:01 Temperature Temperature Source Sepsis Recent Fever Within 48 Hours Sepsis New/Unexplained Change in Mental Status Sepsis Action Taken by Nursing Pulse Rate 84 77 83 Pulse Rate [Apical] Pulse Rate from SpO2 Sensor 80 78 79 Respiratory Rate 23 21 21 Blood Pressure 158/95 H Blood Pressure [Left Arm] Blood Pressure Mean 116 Blood Pressure Mean [Left Arm] Blood Pressure Position Pulse Oximetry 97 95 96 Oxygen Delivery Method Oxygen Flow Rate 04/03/19 16:10 04/03/19 16:20 04/03/19 16:30 Temperature Temperature Source Sepsis Recent Fever Within 48 Hours Sepsis New/Unexplained Change in Mental Status Sepsis Action Taken by Nursing Pulse Rate 78 81 75 Pulse Rate [Apical] Pulse Rate from SpO2 Sensor 78 81 81 Respiratory Rate 19 24 31 H Blood Pressure Blood Pressure [Left Arm] Blood Pressure Mean Blood Pressure Mean [Left Arm] Blood Pressure Position Pulse Oximetry 92 97 97 Oxygen Delivery Method Oxygen Flow Rate 04/03/19 16:40 04/03/19 16:50 04/03/19 17:00 Temperature Temperature Source Sepsis Recent Fever Within 48 Hours Sepsis New/Unexplained Change in Mental Status Sepsis Action Taken by Nursing Pulse Rate 80 80 80 Pulse Rate [Apical] Pulse Rate from SpO2 Sensor 78 78 79 Respiratory Rate 32 H 20 25 H Blood Pressure 152/98 H Blood Pressure [Left Arm] Blood Pressure Mean 116 Blood Pressure Mean [Left Arm] Blood Pressure Position Pulse Oximetry 96 96 98 Oxygen Delivery Method Oxygen Flow Rate 04/03/19 17:01 Temperature Temperature Source Sepsis Recent Fever Within 48 Hours Sepsis New/Unexplained Change in Mental Status Sepsis Action Taken by Nursing Pulse Rate 76 Pulse Rate [Apical] Pulse Rate from SpO2 Sensor 76 Respiratory Rate 22 Blood Pressure Blood Pressure [Left Arm] Blood Pressure Mean Blood Pressure Mean [Left Arm] Blood Pressure Position Pulse Oximetry 95 Oxygen Delivery Method Oxygen Flow Rate Home Medications Current Medication List: was personally reviewed by me Laboratory Data Attestation: I reviewed the patient's lab results. Result diagrams: 04/03/19 13:16 04/03/19 13:16 Lab Results 04/03/19 04/03/19 04/03/19 Range/Units 13:16 13:16 13:32 WBC 9.80 (4.8-10.8) K/uL RBC 4.60 L (4.7-6.1) M/uL Hgb 16.6 (14.0-18.0) g/dL Hct 46.3 (42-52) % MCV 100.7 H (80-100) fL MCH 36.1 H (25-34) pg MCHC 35.9 (32-36) g/dL RDW Std Deviation 46.1 (36.4-46.3) fL RDW Coeff of Demetrice 12.7 (11.5-14.5) % Plt Count 240 (130-400) K/uL MPV 10.1 (7.4-10.4) fL Immature Gran % (Auto) 0.3 % Neut % (Auto) 78.7 % Lymph % (Auto) 9.9 % Cecil % (Auto) 10.6 % Eos % (Auto) 0.3 % Baso % (Auto) 0.2 % Immature Gran # (Auto) 0.03 H (0.00-0.02) K/uL Neut # (Auto) 7.71 H (1.4-6.5) K/uL Lymph # (Auto) 0.97 L (1.2-3.4) K/uL Cecil # (Auto) 1.04 H (0.11-0.59) K/uL Eos # (Auto) 0.03 (0-0.5) K/uL Baso # (Auto) 0.02 (0-0.2) K/uL Sodium 137 (136-145) mmol/L Potassium 3.9 (3.5-5.1) mmol/L Chloride 104 (98-107) mmol/L Carbon Dioxide 29 (21-32) mmol/L Anion Gap 4 (3-11) BUN 20 H (7-18) mg/dl Creatinine 1.13 (0.6-1.4) mg/dl Est Cr Clr Drug Dosing Not Reportable Est GFR ( Amer) 68.8 Est GFR (Non-Af Amer) 59.4 BUN/Creatinine Ratio 17.7 (10-20) Glucose 136 H (70-99) mg/dl POC Lactic Acid Hector 1.43 (0.90-1.70) mmol/L Calcium 9.7 (8.5-10.1) mg/dl Magnesium 2.3 (1.8-2.4) mg/dl Total Bilirubin 0.5 (0.2-1) mg/dl AST 29 (15-37) U/L ALT 9 L (12-78) U/L Alkaline Phosphatase 118 H (45-117) U/L Troponin I < 0.015 (0-0.045) ng/ml Total Protein 8.2 (6.4-8.2) gm/dl Albumin 3.3 L (3.4-5.0) gm/dl Globulin 4.9 H (2.5-4.0) gm/dl Albumin/Globulin Ratio 0.7 L (0.9-2) TSH 2.350 (0.300-4.500) uIu/ml Urine Color Urine Appearance (Clear) Urine pH (4.5-7.5) Ur Specific Montgomery (1.000-1.030) Urine Protein (Negative) Urine Glucose (UA) (Negative) Urine Ketones (Negative) Urine Blood (Negative) Urine Nitrite (Negative) Urine Bilirubin (Negative) Urine Urobilinogen (Negative) Ur Leukocyte Esterase (Negative) 04/03/19 Range/Units 15:43 WBC (4.8-10.8) K/uL RBC (4.7-6.1) M/uL Hgb (14.0-18.0) g/dL Hct (42-52) % MCV (80-100) fL MCH (25-34) pg MCHC (32-36) g/dL RDW Std Deviation (36.4-46.3) fL RDW Coeff of Demetrice (11.5-14.5) % Plt Count (130-400) K/uL MPV (7.4-10.4) fL Immature Gran % (Auto) % Neut % (Auto) % Lymph % (Auto) % Cecil % (Auto) % Eos % (Auto) % Baso % (Auto) % Immature Gran # (Auto) (0.00-0.02) K/uL Neut # (Auto) (1.4-6.5) K/uL Lymph # (Auto) (1.2-3.4) K/uL Cecil # (Auto) (0.11-0.59) K/uL Eos # (Auto) (0-0.5) K/uL Baso # (Auto) (0-0.2) K/uL Sodium (136-145) mmol/L Potassium (3.5-5.1) mmol/L Chloride (98-107) mmol/L Carbon Dioxide (21-32) mmol/L Anion Gap (3-11) BUN (7-18) mg/dl Creatinine (0.6-1.4) mg/dl Est Cr Clr Drug Dosing Est GFR ( Amer) Est GFR (Non-Af Amer) BUN/Creatinine Ratio (10-20) Glucose (70-99) mg/dl POC Lactic Acid Hector (0.90-1.70) mmol/L Calcium (8.5-10.1) mg/dl Magnesium (1.8-2.4) mg/dl Total Bilirubin (0.2-1) mg/dl AST (15-37) U/L ALT (12-78) U/L Alkaline Phosphatase (45-117) U/L Troponin I (0-0.045) ng/ml Total Protein (6.4-8.2) gm/dl Albumin (3.4-5.0) gm/dl Globulin (2.5-4.0) gm/dl Albumin/Globulin Ratio (0.9-2) TSH (0.300-4.500) uIu/ml Urine Color Yellow Urine Appearance Clear (Clear) Urine pH 6.0 (4.5-7.5) Ur Specific Montgomery 1.033 H (1.000-1.030) Urine Protein Negative (Negative) Urine Glucose (UA) Negative (Negative) Urine Ketones Negative (Negative) Urine Blood Negative (Negative) Urine Nitrite Negative (Negative) Urine Bilirubin Negative (Negative) Urine Urobilinogen Negative (Negative) Ur Leukocyte Esterase Negative (Negative) Administered Medications Ioversol (Optiray 320 125ml) 120 ml IV ONCE PRN PRN Reason: Interaction Checking Stop: 04/07/19 14:53 Last Admin: 04/03/19 14:54 Dose: 120 ml Documented by: [id number] Discontinued Medications Cefepime HCl (Maxipime) 2,000 mg in 20 mls @ 5 mls/min IV NOW STA; Protocol Stop: 04/03/19 12:51 Last Admin: 04/03/19 13:25 Dose: 5 mls/min Documented by: [id number] Clindamycin Phosphate 600 mg/ (Dextrose) 54 mls @ 100 mls/hr IV ONE ONE Stop: 04/03/19 13:20 Last Infusion: 04/03/19 16:07 Dose: 0 mls/hr Documented by: [id number] Admin: 04/03/19 13:25 Dose: 100 mls/hr Documented by: [id number] Vancomycin HCl 1,500 mg/ (Sodium Chloride) 530 mls @ 200 mls/hr IV NOW ONE; Protocol Stop: 04/03/19 15:26 Last Infusion: 04/03/19 16:07 Dose: 0 mls/hr Documented by: [id number] Admin: 04/03/19 13:26 Dose: 200 mls/hr Documented by: [id number] Imaging Data Radiologist's Impression: Radiology results as stated below per my review and the radiologist's interpretation: XR chest 1V portable CLINICAL HISTORY: weakness dyspnea COMPARISON STUDY: 03/25/2019 FINDINGS: Some progressive consolidative change right apical region. Increasing density right and to lesser extent left base. The mid and upper aspects left lung remain clear. Bilateral stimulator packs are again noted. IMPRESSION: Mildly progressive consolidative change right upper and right basilar pulmonary region. Unchanging parenchymal density left lung base. The above report was generated using voice recognition software. It may contain grammatical, syntax or spelling errors. Electronically signed by: Bunny Ryan M.D. 04/03/2019 1:[address] angio chest PE protocol CLINICAL HISTORY: 83 years-old Male presenting with [place] ^CTR RM C10 ^hypoxia, h/o cancer, RUL mass, ?pneumonia. TECHNIQUE: Multidetector CT angiography of the chest was performed after admi nistration of intravenous contrast. 3-D volumetric and/or maximum intensity projection (MIP) images were subsequently reconstructed for review. IV contrast: 120 mL of Optiray 320. One or more dose lowering techniques were used consistent with the principles of ALARA (as low as reasonably achievable), including automatic exposure control, mA or kV adjustment to individual patient size, and/or use of iterative reconstruction. COMPARISON: Chest CT from 12/29/2016. CT DOSE (mGy.cm): The estimated cumulative dose is 383.96 mGy.cm. FINDINGS: Rn Plastic Surgery topogram: Implanted chief medical technologist projects over the left upper lung with leads coursing to the neck. Extensive right lung infiltrates. Pulmonary vasculature: The study is suboptimal for the assessment of the pulmonary vascular tree secondary to respiratory motion artifact. No filling defect within the pulmonary arteries to suggest embolus. Limited evaluation of the left lung base. Main pulmonary artery is not enlarged. Flattening of the interventricular septum with right heart enlargement . No reflux of contrast into the hepatic veins. Remaining chest: Soft tissues: Normal thyroid and thoracic inlet. No axillary, supraclavicular, mediastinal, or hilar lymphadenopathy. Atherosclerosis of the aorta. Right heart enlargement. Coronary artery calcification. No pericardial or pleural effusion. Renal cysts. Lungs and airways: Extensive multifocal primarily solid consolidation extensively involving the right lung and in a peribronchial vascular distribution involving the superior segment of the lingula and left lung base. Debris noted in the upper trachea. Pulmonary arteries are not significantly enlarged relative to adjacent bronchi. No interlobular septal thickening. Musculoskeletal: Degenerative changes of the spine. Mild vertebral body compression deformity of T12, new from prior. IMPRESSION: 1. Allowing for suboptimal image quality, no evidence of pulmonary embolus. 2. Extensive consolidation throughout the right lung and to a lesser degree in the left lung base and lingula. This is most concerning for multifocal p neumonia. This should be followed to resolution. Differential considerations include mucinous adenocarcinoma and lymphoma. Bronchoscopy could be considered. 3. Right heart enlargement. 4. New compression deformity of T12. Correlate with point tenderness to assess for acuity. Electronically signed by: Jos Deluna M.D. 04/03/2019 3:14 PM ECG Data Attestation: I personally reviewed and interpreted this ECG as follows: Indication: SOB/dyspnea Rate (beats per minute): 84 Rhythm: normal sinus Findings: + other (LVH, electric inteference from stimilator present) and + nonspecific-ST abn Blood Pressure Blood Pressure Findings: Elevated blood pressure Blood Pressure Disposition: further management by hospitalist Discharge Plan Visit Data Chief Complaint: Illness Stated Complaint: HYPOXIC ED Provider: Ruben Canseco Discharge Problem: Hypoxia, Pneumonia, Lung cancer Patient Disposition: Being Evaluated by Hospitalist Discharge Instructions Interventions: ED Discharge Assessment Last Done: 04/03/19 17:44 Discharge Problem: Pneumonia Qualifiers: Pneumonia type: due to unspecified organism Laterality: right Lung location: upper lobe of lung Qualified Code(s): J18.1 - Lobar pneumonia, unspecified organism Lung cancer Qualifiers: Laterality: right Lung location: middle lobe of lung Qualified Code(s): C34.2 - Malignant neoplasm of middle lobe, bronchus or lung The scribe's documentation has been prepared under my direction and personally reviewed by me in its entirety. I confirm that the note above accurately refl ects all work, treatment, procedures, and medical decision making performed by me.
[2019-04-03] MEDS ORDERED: ACETAMINOPHEN 325 MG TAB PO PRN (18:11)
[2019-04-03] MEDS ORDERED: ONDANSETRON INJ 2 MG/ML 2 ML VIAL IV PRN (18:11)
[2019-04-03] MEDS ORDERED: MAGNESIUM HYDROXIDE SUSP 30 ML UDC PO PRN (18:11)
[2019-04-03] MEDS ORDERED: PATIENT'S HEIGHT AND/OR WEIGHT NEEDED SCH (19:00)
[2019-04-03 19:13] LABS: INR 1.1 (0.9-1.1); Partial Thromboplastin Ratio 0.9; Partial Thromboplastin Time 24.8 Seconds (21.0-31.0); Prothrombin Time 10.9 Seconds (9.0-12.0)
[2019-04-03] MEDS ORDERED: CARBIDOPA/LEVODOPA 25/100MG EXT REL TAB PO SCH (19:30)
--- NOTE | 2019-04-03 20:39 | XRay Report ---
XR chest 1V portable CLINICAL HISTORY: tachypnea COMPARISON STUDY: 04/03/2019 FINDINGS: The heart remains enlarged. There are extensive right lung pulmonary airspace opacities. Th ere are mild left basilar airspace opacities. There is no failure. There are no large pleural effusio ns. There is a left chest implantable device with electrodes which extend cephalad[ IMPRESSION: 1. Stable cardiomegaly 2. Extensive right lung airspace opacities and mild left basilar airspace opacities. The findings are suggestive of a multifocal pneumonia. The right lung findings are stable. The left lower lung zone f indings are minimally progressive. Radiographic follow-up is recommended Electronically signed by: Niels Colindres M.D. 04/03/2019 8:38 PM
[2019-04-03] MEDS: SELEGILINE HCL 5 MG TAB PO SCH (20:42)
[2019-04-03] MEDS: DOCUSATE SODIUM 100 MG CAP PO SCH (20:43)
[2019-04-03] MEDS: clonazePAM 0.5 MG TAB PO SCH (20:47)
[2019-04-03] MEDS: CARBIDOPA/LEVODOPA 25/100MG TAB PO SCH (20:57)
[2019-04-03] MEDS ORDERED: FUROSEMIDE 20 MG in SYRINGE 0 ML IV ONE ×2 (21:00→23:30)
[2019-04-03] MEDS ORDERED: CARBIDOPA/LEVODOPA 25/100MG EXT REL TAB PO ONE (21:00)
[2019-04-03] MEDS ORDERED: CARBIDOPA/LEVODOPA 25/100MG TAB PO SCH (21:00)
[2019-04-03] MEDS ORDERED: [UNRECOGNIZED DRUG - OTHER] PO SCH (21:00)
[2019-04-03] MEDS: CARBIDOPA/LEVODOPA 50/200MG EXT REL TAB PO SCH (21:49)
[2019-04-03] MEDS: CEFEPIME 2,000 MG in SYRINGE 7.5 ML IV SCH (23:51)
[2019-04-04 04:49] LABS: Basophils # (auto) 0.02 K/uL (0-0.2); Basophils % (auto) 0.2 %; Eosinophils # (auto) 0.04 K/uL (0-0.5); Eosinophils % (auto) 0.4 %; Hematocrit (blood only) 46.6 % (42-52); Hemoglobin 16.6 g/dL (14.0-18.0); Immature Granulocytes # (auto) 0.02 K/uL (0.00-0.02); Immature Granulocytes % (auto) 0.2 %; Lymphocytes # (auto) 1.14 K/uL (1.2-3.4); Lymphocytes % (auto) 12.3 %; Mean Corpuscular Hgb Conc 35.6 g/dL (32-36); Mean Corpuscular Volume 99.6 fL (80-100); Monocytes # (auto) 0.85 K/uL (0.11-0.59); Monocytes % (auto) 9.1 %; Neutrophils # (auto) 7.22 K/uL (1.4-6.5); Neutrophils % (auto) 77.8 %; Platelet Count 235 K/uL (130-400); RDW Coefficient of Variation 12.7 % (11.5-14.5); RDW Standard Deviation 46.1 fL (36.4-46.3); Red Blood Count 4.68 M/uL (4.7-6.1); White Blood Count 9.29 K/uL (4.8-10.8)
[2019-04-04 05:06] LABS: Creatinine Clr Calc Pharmacy 42.4 ml/min; Est GFR (Non-African American) 56.9
[2019-04-04] MEDS ORDERED: CARBIDOPA/LEVODOPA 25/100MG EXT REL TAB PO SCH (07:00)
[2019-04-04] MEDS ORDERED: CARBIDOPA/LEVODOPA 25/100MG TAB PO SCH (07:00)
--- NOTE | 2019-04-04 07:01 | Critical Care Consultation ---
Date of Consultation April 04, 2019 Assessment & Plan (1) Goals of care, counseling/discussion: Reason Critically Ill: Pt is an 83yo gentleman with acute hypoxic respiratory failure in the setting of Parkinson's and likely lung malignancy. PLAN: NEURO -CAM ICU NEGATIVE -Pt with Hx of Parkinson's. -Continue home meds. -Of note, with Hx of Parkinson's, pt can decompensate if he undergoes a bronch for further diagnosis of what appears to be a lung malignancy, or requires intubation at any point. -For this reason, he appears to be terminally ill and palliative care has been consulted. Appreciate their recommendations and efforts. RESPIRATORY Acute hypoxic respiratory failure -Requiring 100% high flow oxygen and saturating in the 80s. -CT Scans and chest xrays indicate a progressive right lung mass. -Pt does not appear to have symptoms of infection, but could also possibly be an interstitial lung process though less likely -However, continue empiric treatment with antibiotics, high-dose steroids, high-dose oxygen -will continue to monitor, likely terminal given current requirements and inability to intubate should further support be required. -Palliative consult and efforts appreciated. CARDS/VASC -continue home aspirin therapy -chest xray with mild cardiomegaly ID: -No signs of infection currently, afebrile, normal WBC -CT and chest xray suggesting possible multifocal pneumonia vs. lymphoma vs. mucinous adenocarcinoma. -Bronch not option given Hx of Parkinson's, will attempt to get a sputum culture -Continue cefepime and vancomycin x 14 days total, steroids GI/Nutrition: -Regular diet -GI Prophylaxis: Protonix Heme: -Hx of lymphoma in remission circa 2013 -WBC, platelet count normal, no anemia. -will continue to monitor ENDO ICU hyperglycemia protocol Vascular access: Peripheral IVs DVT Prophylaxis: lovenox Code Status: DNI Supervising Physician Co-Signing Physician Notes Dr. Holt was resident physician during care of patient. I separately evaluated patient for bro portions of the history and the exam. I was present during the critical portion of medical decision making, and I discussed the case with the resident. I generally agree with the findings and plan. Reason Critically Ill: Hypoxic respiratory failure PLAN: Neuro: Parkinson's -Continue current Parkinson regimen -I feel that if the patient was intubated he would likely further decompensate from Parkinson's standpoint -Combining the lung mass with end-stage Parkinson's we may be entering an end-stage terminal condition without meaningful chance of recovery Resp: Acute hypoxic respiratory failure -Reviewed CT scan from 2017 as well as chest x-ray from September and CT scan today. Does not appear to be a postobstructive process -I am led to believe this is most likely progression of malignant disease process -Continue to empiric treatment with antibiotics, high-dose steroids, high-dose oxygen -I am very concerned of a poor prognosis -Given the significant hypoxia and high oxygen requirements if he were to suffer a cardiac arrest and not be intubated I do not believe that this would be a successful resuscitation. I would be in agreement with DNR/DNI and transition to comfort measures as the patient does appear to be approaching end-of-life CV: Abnormal EKG Cardiomyopathy NOS -Daily aspirin therapy ID: Continue cefepime and vancomycin -Attempt sputum collect -14 days empiric treatment at this time secondary to complicated course known malignancy GI/Nutrition: Hypoalbuminemia -Suspect protein calorie malnutrition versus cachexia of malignancy Heme: No anemia, no white count mild increase in monocytes -This leads me to further believe that this is not a pneumonia/infectious process and more malignancy -However given multitude of complicating factors will continue with empiric treatment DVT prophylaxis: Lovenox Endocrine: ICU hyperglycemia protocol 80 mg prednisone daily x3 days then decrease to 40 mg x 4 days -Protracted taper 30 mg x 1 week 20 mg x 1 week 10 mg x 1 week then discontinue -This is empiric treatment for ILD versus cryptogenic organizing pneumonia versus severe community-acquired pneumonia Vascular access: Peripheral IVs Code Status: DNI -Palliative care consult, I do not believe we would be successful in the event of cardiac arrest without intubation. Patient is end-stage Parkinson's and presumptive end-stage malignancy, previous documentation reports that family would be open with hospice care. Given the profound hypoxia and very significant oxygen requirements to do believe the patient is in end-stage terminal condition without meaningful chance of recovery. I have personally spent 45 minutes of critical care time in the direct management of this patient. This is a life/limb threatening event. This includes time spent evaluating patient, direct bedside care, chart review, placing orders, interpretation of diagnostic studies, discussion with consultants, patient, and/or family members regarding treatment decisions, as well as other required patient management activities. This time is exclusive of all separately billable procedures, and teaching time and separate from and in addition to any other critical care service time. History of Present Illness Attending Physician: Leeanne Herrera DO History of Present Illness Mr. Henriquez is an 83yo gentleman with a PMhx significant for Parkinson's disease, lymphoma in remission, MGUS and currently a lung malignancy who was sent over by his oncologist for saturations in the 80s. Pt has a Hx of a lung ma lignancy noted from 2017, but refuses workup as he believes it might exacerbate his Parkinson's. Currently in the ICU requiring 100% high flow oxygen and saturating at 94%. States he just feels stiff but denies WATERS, SOB, chest pain, abd pain, diarrhea or constipation. Allergies Allergy/AdvReac Type Severity Reaction Status Date / Time Penicillins Allergy Mild Verified 03/28/18 15:11 benztropine [From Cogentin] Allergy Confusion Unverified 04/03/19 13:44 entacapone [From Comtan] Allergy Unknown Unverified 04/03/19 13:44 Home Medications Home Medications Medication Instructions Recorded Confirmed Type aspirin [Aspirin Low Dose] 81 mg PO DAILY 04/03/19 04/03/19 History bisacodyl [Dulcolax (bisacodyl)] 10 mg [place] DAILY 04/03/19 04/03/19 History calcium carbonate-vitamin D3 1 tab PO DAILY 04/03/19 04/03/19 History [Calcium 500 + D] carbidopa-levodopa 1 tab PO HS 04/03/19 04/03/19 History carbidopa-levodopa 1 tab PO QID@,,,04/03/19 04/03/19 History carbidopa-levodopa 2 tab PO QID@,,,04/03/19 04/03/19 History cholecalciferol (vitamin D3) 2,000 unit PO DAILY 04/03/19 04/03/19 History [Vitamin D3] clonazepam 0.5 mg PO HS 04/03/19 04/03/19 History docusate sodium [Colace] 100 mg PO BID 04/03/19 04/03/19 History pantoprazole 20 mg PO DAILY 04/03/19 04/03/19 History rotigotine [Neupro] 1 patch TRANSDERMAL DAILY 04/03/19 04/03/19 History selegiline HCl 5 mg PO BID 04/03/19 04/03/19 History Patient History Medical History Parkinson disease (Chronic) Family History Father Lung cancer Social History Preferred Language: Indian Communication Ability: Effective Beliefs That Will Affect Care: Yarsanism Yarsanism Beliefs: Latter-Day Current Living Situation: Spouse Feels Safe at Home: Yes Smoking Status: Never smoker Hx Alcohol Use: Yes Alcohol Intake Frequency Comment: occasional beer or wine Hx Substance Use: No Review of Systems Review of Systems: All systems reviewed & are unremarkable except as noted in HPI & below Physical Exam Physical Exam: General: Alert, No acute distress sitting up in bed HEENT: NC/AT, nasal cannula in nares Chest: Nontender to palpation. CV: RRR, Normal s1, s2. Resp: Breath sounds coarse bilaterally, no increased effort of breathing. Abdomen: Soft, nontender. No guarding. Extremities: No edema. Results & Data Vital Signs (Past 12 Hours) Vital Signs Temp Pulse Pulse Resp BP BP Pulse Ox 04/04/19 05:00 84 24 114/77 94 04/04/19 04:00 36.7 C 90 87 23 133/86 91 04/04/19 03:01 87 33 H 88 L 04/04/19 03:00 87 24 128/83 94 04/04/19 02:00 85 21 110/75 91 04/04/19 01:27 90 24 04/04/19 01:00 85 29 H 149/94 H 91 04/04/19 00:47 85 04/04/19 00:00 36.7 C 85 26 H 161/99 H 90 04/03/19 23:00 85 21 144/91 H 89 L 04/03/19 22:04 81 28 H 146/92 H 91 04/03/19 21:46 36.4 C L 88 28 H 170/104 H 94 04/03/19 21:12 83 32 H 153/94 H 91 04/03/19 19:37 36.6 C 81 19 146/80 H 91 Pulse Ox 04/04/19 05:00 04/04/19 04:00 92 04/04/19 03:01 04/04/19 03:00 04/04/19 02:00 04/04/19 01:27 93 04/04/19 01:00 04/04/19 00:47 04/04/19 00:00 04/03/19 23:00 04/03/19 22:04 04/03/19 21:46 04/03/19 21:12 04/03/19 19:37 Laboratory Results Laboratory Results - last 24 hr 04/03/19 04/03/19 04/04/19 18:37 19:12 04:13 WBC 9.29 RBC 4.68 L Hgb 16.6 Hct 46.6 MCV 99.6 MCH 35.5 H MCHC 35.6 RDW Std Deviation 46.1 RDW Coeff of Demetrice 12.7 Plt Count 235 MPV 10.0 Immature Gran % (Auto) 0.2 Neut % (Auto) 77.8 Lymph % (Auto) 12.3 Dukes % (Auto) 9.1 Eos % (Auto) 0.4 Baso % (Auto) 0.2 Immature Gran # (Auto) 0.02 Neut # (Auto) 7.22 H Lymph # (Auto) 1.14 L Dukes # (Auto) 0.85 H Eos # (Auto) 0.04 Baso # (Auto) 0.02 PT 10.9 INR 1.1 APTT 24.8 PTT Ratio 0.9 Creatinine Est Cr Clr Drug Dosing Est GFR ( Amer) Est GFR (Non-Af Amer) POC Glucose Nasal Screen MRSA (PCR) Negative 04/04/19 04/04/19 04:13 06:29 WBC RBC Hgb Hct MCV MCH MCHC RDW Std Deviation RDW Coeff of Demetrice Plt Count MPV Immature Gran % (Auto) Neut % (Auto) Lymph % (Auto) Dukes % (Auto) Eos % (Auto) Baso % (Auto) Immature Gran # (Auto) Neut # (Auto) Lymph # (Auto) Dukes # (Auto) Eos # (Auto) Baso # (Auto) PT INR APTT PTT Ratio Creatinine 1.17 Est Cr Clr Drug Dosing 42.4 Est GFR ( Amer) 66.0 Est GFR (Non-Af Amer) 56.9 POC Glucose 112 H Nasal Screen MRSA (PCR) Medications Administered Home Medications aspirin [Aspirin Low Dose] 81 mg PO DAILY 04/03/19 [History Confirmed 04/03/19] bisacodyl [Dulcolax (bisacodyl)] 10 mg [place] DAILY 04/03/19 [History Confirmed 04/03/19] calcium carbonate-vitamin D3 [Calcium 500 + D] 1 tab PO DAILY 04/03/19 [History Confirmed 04/03/19] carbidopa-levodopa 1 tab PO HS 04/03/19 [History Confirmed 04/03/19] carbidopa-levodopa 1 tab PO QID@07,,,04/03/19 [History Confirmed 04/03/19] carbidopa-levodopa 2 tab PO QID@,,,04/03/19 [History Confirmed 04/03/19] cholecalciferol (vitamin D3) [Vitamin D3] 2,000 unit PO DAILY 04/03/19 [History Confirmed 04/03/19] clonazepam 0.5 mg PO HS 04/03/19 [History Confirmed 04/03/19] docusate sodium [Colace] 100 mg PO BID 04/03/19 [History Confirmed 04/03/19] pantoprazole 20 mg PO DAILY 04/03/19 [History Confirmed 04/03/19] rotigotine [Neupro] 1 patch TRANSDERMAL DAILY 04/03/19 [History Confirmed 04/03/19] selegiline HCl 5 mg PO BID 04/03/19 [History Confirmed 04/03/19] Active Medications Acetaminophen (Tylenol) 650 mg PO Q4H PRN PRN Reason: Pain or Fever Stop: 05/03/19 18:10 Aspirin (Ecotrin Ectab) 81 mg PO DAILY [facility] Stop: 05/04/19 08:59 Last Admin: 04/04/19 07:47 Dose: 81 mg Documented by: Bisacodyl (Dulcolax) 10 mg [place] DAILY [facility] Stop: 05/04/19 08:59 Last Admin: 04/04/19 07:48 Dose: Not Given Documented by: Carbidopa/Levodopa (Sinement Cr 25/100mg) 1 tab PO DAILY@0700,1100 [facility] Stop: 05/04/19 06:59 Last Admin: 04/04/19 11:09 Dose: 1 tab Documented by: Carbidopa/Levodopa (Sinemet Cr 50/200mg) 1 tab PO DAILY@2200 [facility] Stop: 05/03/19 21:59 Last Admin: 04/03/19 21:49 Dose: Not Given Documented by: Carbidopa/Levodopa (Sinemet 25/100 Mg) 2 tab PO DAILY@1500,1900 [facility] Stop: 05/03/19 19:44 Last Admin: 04/04/19 15:06 Dose: 2 tab Documented by: Carbidopa/Levodopa (Sinemet 25/100 Mg) 2 tab PO TODAY@0700,1100 [facility] Stop: 05/04/19 06:59 Last Admin: 04/04/19 11:00 Dose: 2 tab Documented by: Carbidopa/Levodopa (Sinement Cr 25/100mg) 1 tab PO DAILY@1500,1900 [facility] Stop: 05/04/19 14:59 Last Admin: 04/04/19 15:07 Dose: 1 tab Documented by: Clonazepam (Klonopin) 0.5 mg PO HS [facility] Stop: 05/03/19 20:59 Last Admin: 04/03/19 20:47 Dose: Not Given Documented by: Docusate Sodium (Colace) 100 mg PO BID [facility] Stop: 05/03/19 20:59 Last Admin: 04/04/19 07:47 Dose: 100 mg Documented by: Enoxaparin Sodium (Lovenox) 40 mg SQ QAM [facility] Stop: 05/04/19 08:59 Last Admin: 04/04/19 07:48 Dose: 40 mg Documented by: Cefepime HCl 2,000 mg/ Syringe 20 mls @ 5.5 mls/min IV Q12H [facility]; Protocol Stop: 04/17/19 13:59 Last Admin: 04/04/19 12:44 Dose: 5.5 mls/min Documented by: Vancomycin HCl 1,000 mg/ (Sodium Chloride) 270 mls @ 125 mls/hr IV Q18H [facility] Stop: 04/17/19 13:59 Last Infusion: 04/04/19 09:02 Dose: Infused Documented by: Ioversol (Optiray 320 125ml) 120 ml IV ONCE PRN PRN Reason: Interaction Checking Stop: 04/07/19 14:53 Last Admin: 04/03/19 14:54 Dose: 120 ml Documented by: Magnesium Hydroxide (Milk Of Magnesia) 30 ml PO Q12H PRN PRN Reason: Constipation Stop: 05/03/19 18:10 Miscellaneous Information (Consult) 1 ea N/A UD PRN PRN Reason: Consult Stop: 05/03/19 12:47 Morphine Sulfate (Morphine Sulfate) 2 mg IV Q2H PRN PRN Reason: Pain Stop: 04/18/19 14:47 Last Admin: 04/04/19 15:05 Dose: 2 mg Documented by: Multivitamins/Minerals (Caltrate Plus) 1 tab PO DAILY [facility] Stop: 05/04/19 08:59 Last Admin: 04/04/19 07:46 Dose: 1 tab Documented by: Neupro 3mg/24hrs ~ Non-Formulary Patient's Own Med 1 ea TOP DAILY [facility] Stop: 05/04/19 08:59 Last Admin: 04/04/19 07:49 Dose: 1 ea Documented by: Ondansetron HCl (Zofran) 4 mg IV Q6H PRN PRN Reason: Nausea Stop: 05/03/19 18:10 Pantoprazole Sodium (Protonix) 40 mg PO DAILY [facility]; Protocol Stop: 05/04/19 08:59 Last Admin: 04/04/19 07:49 Dose: 40 mg Documented by: Prednisone (Prednisone) 80 mg PO QAM [facility] Stop: 04/06/19 09:01 Last Admin: 04/04/19 08:25 Dose: 80 mg Documented by: Prednisone (Prednisone) 40 mg PO QAM [facility] Stop: 04/10/19 09:01 Prednisone (Prednisone) 30 mg PO QAM [facility]; Taper Stop: 05/02/19 08:59 Selegiline HCl (Eldepryl) 5 mg PO BID [facility] Stop: 05/03/19 20:59 Last Admin: 04/04/19 15:12 Dose: 5 mg Documented by: Vitamin D (Vitamin D3) 2,000 units PO DAILY [facility] Stop: 05/04/19 08:59 Last Admin: 04/04/19 07:49 Dose: 2,000 units Documented by: PG Care Time/CCT Total # of Minutes Spent Total Time Spent with Patient: Total time spent is greater than 50% in coordination of care (as documented) at patient's floor/unit and/or counseling patient: Critical Care Time: Yes Total Critical Care Time: 45
[2019-04-04] MEDS: CARBIDOPA/LEVODOPA 25/100MG TAB PO SCH ×4 (07:05→19:45)
[2019-04-04] MEDS: VANCOMYCIN HCL 1,000 MG in SODIUM CHLORIDE 0.9% 250 ML IV SCH (07:05)
[2019-04-04] MEDS: CARBIDOPA/LEVODOPA 25/100MG EXT REL TAB PO SCH ×4 (07:09→19:49)
--- NOTE | 2019-04-04 07:20 | XRay Report ---
XR chest 1V portable CLINICAL HISTORY: 83 years-old Male presenting with pulmonary edema. TECHNIQUE: Portable upright AP view of the chest was obtained. COMPARISON: 04/03/2019. 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 Atherosclerosis and tortuosity of the thoracic aorta. Cardiac silhouette is likely enlarge d though obscured along the right heart border. Rightward mediastinal shift as on prior exam. Extensi ve right lung opacity. Left basilar opacity similar to prior. Heterogeneous radiolucency of the left upper lung. No large pleural effusion or pneumothorax. Osteopenia. Degenerative changes of the left g lenohumeral joint. IMPRESSION: 1. Persistent extensive right lung consolidation and left basilar infiltrate, compatible with multif ocal pneumonia. 2. Cardiomegaly. No convincing evidence of pulmonary edema in the aerated left lung. Electronically signed by: Jos Deluna M.D. 04/04/2019 7:18 AM
[2019-04-04] MEDS: CALCIUM 600MG + VIT D 400 IU TAB PO SCH (07:46)
[2019-04-04] MEDS: DOCUSATE SODIUM 100 MG CAP PO SCH ×2 (07:47→20:00)
[2019-04-04] MEDS: ASPIRIN 81 MG ECTAB PO SCH (07:47)
[2019-04-04] MEDS: SELEGILINE HCL 5 MG TAB PO SCH ×2 (07:47→15:12)
[2019-04-04] MEDS: BISACODYL 10 MG SUPP PR SCH (07:48)
[2019-04-04] MEDS: ENOXAPARIN INJ 40 MG/0.4 ML SYR SQ SCH (07:48)
[2019-04-04] MEDS: CHOLECALCIFEROL 1,000 UNITS TAB PO SCH (07:49)
[2019-04-04] MEDS: PANTOprazole 40 MG TAB PO SCH (07:49)
[2019-04-04] MEDS: NEUPRO TOP SCH (07:49)
[2019-04-04] MEDS: predniSONE 20 MG TAB PO SCH (08:25)
--- NOTE | 2019-04-04 11:19 | Palliative Care Consultation ---
Date of Consultation April 04, 2019 Assessment & Plan (1) Goals of care, counseling/discussion: -83 year old male patient with PMH lung cancer with no chemo/XRT, GERD, Parkinson's disease, MGUS, and others, presented to the hospital yesterday from his appointment with Dr. Garduno for hypoxia. Patient has had lung mass for over two years, which patient and his decided to not undergo treatment for but were just observing. Patient was following up with oncology and had his first meeting with Dr. Garduno yesterday, when his oxygen saturations were found to be 85-86% on room air. CT of the chest showed progressed disease of the right lung as well as left basilar consolidation that could represent a pneumonia. Patient was initially admitted to the floor when his hypoxia became worse. He was given IV Lasix and sent to the ICU for monitoring. He is on abx and steroids. Given patient's comorbidities and likely progressed cancer, palliative care is consulted to discuss goals with patient and his , Martha. -Met with patient, his Martha, Dr. Schulz, and Dr. Holt, in room 106. Patient is awake, alert and oriented x4. But he is quite frail and weak, which from what patient and described, really is his baseline. Parkinson's is pretty advanced, but he is still mentally sharp. does state that recently she noticed more moist secretions that were audible. Patient has not been having trouble swallowing or taking pills. -Dr. Schulz gave medical update to patient and his regarding possibly progressed cancer on the right lung and possible pneumonia. Patient really does not have any other signs of infection, however, we do have him on abx in case it is pneumonia. -Patient and his both stated that they do not plan to do any further workup or treatment for the lung cancer. In fact, they would really like to only focus on comfort at this point. They are okay with continuing PO abx and patient's regular medicines, but do not want any IV medications or other life-prolonging measures. -Discussed code status. Patient would now like to be a DNR/DNI. Patient's is in agreement with this. -Ultimate goal is for patient to get home with hospice after he is stabilized and comfortable over the weekend. -Patient was requiring high-flow nasal cannula at 100% FiO2. Patient is okay with transitioning to regular nasal cannula, as he was completely asymptomatic when he came in despite the hypoxia. He was transitioned to NC and felt well with sats at 85%. -Recommend Roxanol [5]mg PO/SL [Q4h] [PRN] [pain or SOB]. [Patient] [and family] counseled on the secondary side effects of morphine such as sedation and respiratory depression. -Patient will be transitioned out of the ICU today. -Palliative care will follow. (2) Lung cancer: Laterality: right Lung location: middle lobe of lung Qualified Code(s): C34.2 - Malignant neoplasm of middle lobe, bronchus or lung (3) Hypoxia: (4) Parkinson disease: Supervising Physician Co-Signing Physician Notes Chart reviewed, patient seen and examined. Patient's at bedside Collaborated with OFE Alonzo. Patient and have 3 children-the closest one is in [place], do not appear to have a strong support system in place. PE: Patient awake and alert, denies any discomfort HEENT: EOMI, hearing within normal limits Respirations: Unlabored, respiratory rate in the low 20s, poor breath sounds bilaterally CV: Mildly tachycardic, no edema Abdomen: Not distended Neuro: Alert and oriented Agree with above note, assessment and plan as per OFE Alonzo-plan is for patient to return home with hospice care on Sunday, will need to further assess 's support system at home. History of Present Illness Reason for Consultation: Goals of care Requesting Physician: Dr. Schulz Attending Physician: Mark Orlando History of Present Illness This 83 year old male patient with PMH lung cancer with no chemo/XRT, GERD, Parkinson's disease, MGUS, and others, presented to the hospital yesterday from his appointment with Dr. Garduno for hypoxia. Patient has had lung mass for over two years, which patient and his decided to not undergo treatment for but were just observing. Patient was following up with oncology and had his first meeting with Dr. Garduno yesterday, when his oxygen saturations were found to be 85-86% on room air. CT of the chest showed progressed disease of the right lung as well as left basilar consolidation that could represent a pneumonia. Patient was initially admitted to the floor when his hypoxia became worse. He was given IV Lasix and sent to the ICU for monitoring. He is on abx and steroids. Given patient's comorbidities and likely progressed cancer, palliative care is consulted to discuss goals with patient and his , Martha. Thank you kindly for this consult. I will follow as needed. Allergies Allergy/AdvReac Type Severity Reaction Status Date / Time Penicillins Allergy Mild Verified 03/28/18 15:11 benztropine [From Cogentin] Allergy Confusion Unverified 04/03/19 13:44 entacapone [From Comtan] Allergy Unknown Unverified 04/03/19 13:44 Home Medications Home Medications Medication Instructions Recorded Confirmed Type aspirin [Aspirin Low Dose] 81 mg PO DAILY 04/03/19 04/03/19 History bisacodyl [Dulcolax (bisacodyl)] 10 mg [place] DAILY 04/03/19 04/03/19 History calcium carbonate-vitamin D3 1 tab PO DAILY 04/03/19 04/03/19 History [Calcium 500 + D] carbidopa-levodopa 1 tab PO HS 04/03/19 04/03/19 History carbidopa-levodopa 1 tab PO QID@07,,,04/03/19 04/03/19 History carbidopa-levodopa 2 tab PO QID@07,,,19 04/03/19 04/03/19 History cholecalciferol (vitamin D3) 2,000 unit PO DAILY 04/03/19 04/03/19 History [Vitamin D3] clonazepam 0.5 mg PO HS 04/03/19 04/03/19 History docusate sodium [Colace] 100 mg PO BID 04/03/19 04/03/19 History pantoprazole 20 mg PO DAILY 04/03/19 04/03/19 History rotigotine [Neupro] 1 patch TRANSDERMAL DAILY 04/03/19 04/03/19 History selegiline HCl 5 mg PO BID 04/03/19 04/03/19 History Patient History Medical History Parkinson disease (Chronic) Family History Father Lung cancer Social History Preferred Language: Tristanian Communication Ability: Effective Beliefs That Will Affect Care: Buddhism Buddhism Beliefs: Faith Current Living Situation: Spouse Feels Safe at Home: Yes Smoking Status: Never smoker Hx Alcohol Use: Yes Alcohol Intake Frequency Comment: occasional beer or wine Hx Substance Use: No Review of Systems Constitutional: + weakness Ear, Nose, Mouth, Throat: no dysphagia strained voice Respiratory: + dyspnea on exertion; no dyspnea (none at rest) Cardiovascular: no chest pain and no edema Gastrointestinal: no abdominal pain and no nausea Musculoskeletal: + muscle weakness Neurologic: no confusion Psychiatric: no anxiety Physical Exam Constitutional: + ill appearing and + frail appearing ENMT: strained voice-- hypokinetic dysarthria Neck: normal visual inspection Respiratory: + labored breathing; no respiratory distress Auscultation: + diminished lung sounds Cardiovascular: RRR, no murmur, no edema Skin: normal turgor Neurologic: moves all extremities and awake; not confused Psychiatric: Orientation: alert and oriented x 3 Results & Data Vital Signs (Past 12 Hours) Vital Signs Temp Pulse Pulse Resp BP Pulse Ox Pulse Ox 04/04/19 11:13 92 H 90 04/04/19 11:00 91 H 27 H 144/89 H 85 L 04/04/19 10:00 87 26 H 135/89 91 04/04/19 09:00 86 25 H 118/77 93 04/04/19 08:00 36.6 C 90 25 H 132/87 94 04/04/19 07:53 89 20 88 L 04/04/19 07:00 88 25 H 143/87 H 91 04/04/19 05:00 84 24 114/77 94 04/04/19 04:00 36.7 C 90 87 23 133/86 91 92 04/04/19 03:01 87 33 H 88 L 04/04/19 03:00 87 24 128/83 94 04/04/19 02:00 85 21 110/75 91 04/04/19 01:27 90 24 93 04/04/19 01:00 85 29 H 149/94 H 91 04/04/19 00:47 85 04/04/19 00:00 36.7 C 85 26 H 161/99 H 90 Time Spent Midlevel [70] minutes with >50% of the time spent at bedside with [patient and family] discussing [condition and GOC].
[2019-04-04] MEDS: CEFEPIME 2,000 MG in SYRINGE 7.5 ML IV SCH (12:44)
--- NOTE | 2019-04-04 13:35 | Pharmacy Report ---
Pharmacy Abx Dose Short Note - Date of Service April 04, 2019 - Assessment & Plan Assessment * 83 yo M with hx Parkinsons and lung cancer (not currently being treated) on cefepime and vancomycin for possible PNA. 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 I am led to believe this is most likely progression of malignant disease process. Continue to empiric treatment with antibiotics, high-dose steroids, high-dose oxygen" * Discussed need for vancomycin on ICU rounds given negative MRSA nasal swab. * Will continue vancomycin for now despite this 2nd increased risk for false negative in lung CA. However, OK to refrain from aggressive dosing of vancomycin at this time despite critical illness as this is not likely a MRSA PNA and would like to avoid nephrotoxicity Vancomycin * Goal vancomycin trough 15-20 mcg/mL * Current dose is 13 mg/kg dosed at slightly longer than anticipated t1/2 based on CrCL of ~44 mL/min. Will continue. * Will check early trough to assess for a *significantly* subtherapeutic level given less aggressive dosing. Of note, this will be prior to steady state and therefore dose adjustment for a slightly subtherapeutic level will not be necessary as it will likely increase somewhat at steady state Plan * Continue vancomycin 1000 mg IV q18h * Trough 04/05 @ 0030 Pharmacy will continue to follow and will adjust dose/frequency as necessary. Thank you.
[2019-04-04] MEDS: MoRPHine SULFATE 2 MG/ML CARP IV PRN ×2 (15:05→21:29)
[2019-04-04] MEDS ORDERED: Nursing to Pharmacy Communication ONE (19:06)
[2019-04-04] MEDS: clonazePAM 0.5 MG TAB PO SCH (19:58)
--- NOTE | 2019-04-04 20:39 | Hospitalist Progress Note ---
Date of Service April 04, 2019 Assessment & Plan (1) Acute respiratory failure with hypoxia: Likely combination of b/l pneumonia, bronchitis (wheezing on exam), +/- acute diastolic CHF in setting of lung cancer process. Resp status modestly improved in comparison to last evening. s/p steroids, lasix, and antibiotics. Present on Admission?: Yes (2) Pneumonia: b/l, extensive, right lung > left lung. difficult to know how much of CT findings are lung ca and how much is infectious. either way continue cefepime. consider d/c vanco - MRSA swab neg. consider doxy or azithromycin for atypical coverage given b/l nature of pneumonia. continue NC O2 and supportive care. steroids for bronchitic component. Present on Admission?: Yes (3) Lung cancer: Known mass with decision to monitor over the last 2 years. No hx of chemo/radiation per pt preference. Follows with Dr. Garduno in the cancer clinic. Seen by palliative care today -- no plans for any treatment of cancer. Palliative care pathway with rapid movement to comfort care measures w/ any further decline. Present on Admission?: Yes (4) Parkinsons disease: severe. Pt has a complicated schedule of medications - I reviewed all home meds and all doses/times are correct per 's schedule. (5) GERD (gastroesophageal reflux disease): continue PPI (6) DVT prophylaxis: lovenox transfer to med/surg DNR appreciate critical care and palliative care consults Subjective events of last 24 hours noted - worsening resp status, transfer to ICU, discussions with palliative care, etc during my bedside rounds pt offered no complaints and no significant history at bedside; niece at bedside very focused on his medications particularly his PD meds and asked me repeatedly to make sure that the timing of the meds was correct, doses, etc she agreed that a low dose of morphine given earlier today helped his breathing and patient agreed to palliative care measures but wish to continue steroids & abx for acute illness Review of Systems Review of Systems: Unobtainable due to cognitive status Physical Exam Constitutional: + acute distress (tachypneic, mild retractions noted), average body habitus and + altered mental status masked facies from PD ENMT: external ear and nose normal, oropharynx normal Respiratory: + retractions and + uses accessory muscles Auscultation: + diminished lung sounds (significant - right posterior chest), + crackles (b/l) and + wheezes Cardiovascular: Rate/Rhythm: regular rate and regular rhythm Heart Sounds: normal S1 and normal S2; no murmur Vessels: posterior tibial pulses present and dorsalis pedis pulses present; no JVD Extremities: no edema Gastrointestinal (Abdomen): normal bowel sounds, soft, nontender, no hepatosplenomegaly Neurologic: rigidity noted all limbs; masked facies; low-pitched voice Psychiatric: Orientation: alert; + not oriented x 3 Results & Data Vital Signs (Past 12 Hours) Vital Signs Temp Pulse Pulse Resp BP Pulse Ox Pulse Ox 04/04/19 18:00 101 H 27 H 101/64 89 L 04/04/19 16:00 36.5 C 100 H 23 111/64 90 04/04/19 15:00 94 H 27 H 132/82 90 04/04/19 14:00 92 H 26 H 128/79 87 L 04/04/19 13:00 94 H 27 H 116/69 87 L 04/04/19 12:00 36.6 C 94 H 29 H 152/93 H 85 L 04/04/19 11:13 92 H 90 04/04/19 11:00 91 H 27 H 144/89 H 85 L 04/04/19 10:00 87 26 H 135/89 91 04/04/19 09:00 86 25 H 118/77 93 Laboratory Results blood cx's neg to date PG Care Time/CCT Total # of Minutes Spent Total Time Spent with Patient: Total time spent is greater than 50% in coordination of care (as documented) at patient's floor/unit and/or counseling patient: (1) Lung cancer Laterality: right Lung location: middle lobe of lung Qualified Code(s): C34.2 - Malignant neoplasm of middle lobe, bronchus or lung (2) GERD (gastroesophageal reflux disease) Esophagitis presence: esophagitis presence not specified Qualified Code(s): K21.9 - Gastro-esophageal reflux disease without esophagitis (3) Pneumonia Laterality: right Lung location: upper lobe of lung Pneumonia type: due to unspecified organism Qualified Code(s): J18.1 - Lobar pneumonia, unspecified organism
[2019-04-04] MEDS ORDERED: CARBIDOPA/LEVODOPA 25/100MG EXT REL TAB PO ONE (21:00)
[2019-04-04] MEDS: CARBIDOPA/LEVODOPA 50/200MG EXT REL TAB PO SCH (21:35)
[2019-04-05] MEDS ORDERED: VANCOMYCIN TROUGH ONE (00:30)
[2019-04-05] MEDS: CEFEPIME 2,000 MG in SYRINGE 7.5 ML IV SCH ×2 (01:24→11:23)
[2019-04-05] MEDS: VANCOMYCIN HCL 1,000 MG in SODIUM CHLORIDE 0.9% 250 ML IV SCH (01:24)
[2019-04-05] MEDS: MoRPHine SULFATE 2 MG/ML CARP IV PRN (01:31)
[2019-04-05] MEDS ORDERED: LORazepam 0.5 MG TAB ONE (01:55)
[2019-04-05] MEDS ORDERED: OLANZAPINE 2.5 MG TAB PO ONE (01:55)
[2019-04-05] MEDS ORDERED: LORazepam 0.5 MG TAB PO ONE (01:55)
[2019-04-05] MEDS: CARBIDOPA/LEVODOPA 25/100MG TAB PO SCH ×4 (06:28→18:55)
[2019-04-05] MEDS: CARBIDOPA/LEVODOPA 25/100MG EXT REL TAB PO SCH ×4 (06:28→18:56)
[2019-04-05] MEDS: SELEGILINE HCL 5 MG TAB PO SCH ×2 (06:28→15:55)
[2019-04-05 06:59] LABS: Creatinine Clr Calc Pharmacy 46.8 ml/min; Est GFR (African American) 74.3; Est GFR (Non-African American) 64.1
[2019-04-05] MEDS: predniSONE 20 MG TAB PO SCH (08:05)
[2019-04-05] MEDS: ASPIRIN 81 MG ECTAB PO SCH (08:05)
[2019-04-05] MEDS: CHOLECALCIFEROL 1,000 UNITS TAB PO SCH (08:06)
[2019-04-05] MEDS: PANTOprazole 40 MG TAB PO SCH (08:06)
[2019-04-05] MEDS: CALCIUM 600MG + VIT D 400 IU TAB PO SCH (08:06)
[2019-04-05] MEDS: NEUPRO TOP SCH (08:07)
[2019-04-05] MEDS: ENOXAPARIN INJ 40 MG/0.4 ML SYR SQ SCH (08:07)
[2019-04-05] MEDS: BISACODYL 10 MG SUPP PR SCH (08:12)
[2019-04-05] MEDS: DOCUSATE SODIUM 100 MG CAP PO SCH (08:12)
--- NOTE | 2019-04-05 08:31 | Pharmacy Report ---
Pharmacy Abx Dose Short Note - Date of Service April 05, 2019 - Assessment & Plan Assessment 83 year old M receiving vancomycin and cefepime for treatment of pneumonia Day # 3 of antimicrobial therapy. Plan Vancomycin * Trough level came back at 8.8 mg/dL (however level drawn only after two doses of vancomycin, not at steady state) * Renal function continues to improve, closer at baseline today at 1.06 mg/dL (CrCl ~47) * Would have expected level to be slightly higher after two doses and with improving Scr will adjust to vancomycin 1250 mg iv q 16 hrs * Estimated kinetics: t1/2~15 hrs, ke~0.04 hr-1 * Provider notes possible deescalation of antibiotics soon. MRSA swab negative at this time. Blood cultures no growth. Pharmacy will continue to follow and will adjust dose/frequency as necessary. Thank you.
[2019-04-05] MEDS ORDERED: SELEGILINE HCL 5 MG TAB PO SCH (09:00)
[2019-04-05] MEDS: LORazepam 0.5 MG TAB SL PRN ×4 (09:32→22:22)
[2019-04-05] MEDS ORDERED: VANCOMYCIN HCL 1,250 MG in SODIUM CHLORIDE 0.9% 250 ML IV SCH (18:00)
[2019-04-05] MEDS ORDERED: MoRPHine SULFATE 5 MG/0.25 ML UDP PO PRN (18:10)
--- NOTE | 2019-04-05 18:12 | Hospitalist Progress Note ---
Date of Service April 05, 2019 Assessment & Plan (1) Acute respiratory failure with hypoxia: Likely combination of b/l pneumonia, bronchitis, +/- acute diastolic CHF in setting of lung cancer process. Resp status modestly improved once again in comparison to admission. s/p steroids, lasix, and antibiotics. discussed options for treatment with patient/family. for now will continue antibiotics, prednisone. since IV access has been lost will use PO levaquin x 5 more days. if needed can use bronchodilators. cont NC O2 - will need this at discharge. (2) Pneumonia: b/l, extensive, right lung > left lung. difficult to know how much of CT findings are lung ca and how much is infectious. as noted in "acute resp failure" above start levaquin PO x 5 more days of Rx. post-obstructive pneumonia vs community-acquired vs aspiration. cont prednisone. (3) Lung cancer: Known mass with decision to monitor over the last 2 years. No hx of chemo/radiation per pt preference. Follows with Dr. Garduno in the cancer clinic. Seen by palliative care this admission -- no plans for any treatment of cancer. Decision has been made to pursue formal hospice services at d/c. Continue palliative care pathway with rapid movement to comfort care measures w/ any further decline. Ordered roxanol for any pain/air hunger. Ativan SL available for anxiety/agitation. Cont NC O2. Low threshold for dela cruz. Very lengthy discussion held with on 2 occasions and son. (4) Parkinsons disease: severe. advanced. Pt has a complicated schedule of medications - continue them as these will provide comfort to him (if he is willing to take them). Seems to have dysphagia - in light of transitioning to hospice will not modify diet or liquids at this time. (5) GERD (gastroesophageal reflux disease): continue PPI could switch to prevaci solutab if any difficulties swallowing (6) DVT prophylaxis: stop lovenox since transitioning to hospice DNR stop all unnecessary meds (aspirin, supplements, etc) focus on comfort, Rx of pneumonia, symptom control total time today over several visits (3 in total) - 75 minutes Subjective called acutely by nursing staff this AM that patient was refusing his AM meds and his was trying to force the meds in him. he apparently was restless/agitated overnight - took IV out, needed ativan, etc. upon arrival his was at bedside. she was trying to get him to take his meds. he actively was refusing the meds. his stated "he needs to take his medications." the patient stated "please listen to the gentleman" (he was referring to me). I told the that if her didn't want the meds he had the right to refuse. Encouraged her to try again in 1-2 hours. the patient was breathing rapidly during the visit and ultimately calmed down. at one point he had taken off his NC O2 and O2 sats dropped into the mid 80s. patient's son arrived from [place] later in the day and I met with the patient, his , and the son/daughter in law at bedside in the afternoon. spent 30-40 minutes discussing current issues, respiratory failure, transition to palliative care, and likely home w/ hospice this coming week. showed son the chest films. questions answered. Review of Systems Review of Systems: Unobtainable due to cognitive status Physical Exam Constitutional: + acute distress (tachypneic, mild retractions noted - intermittent), average body habitus and + altered mental status ENMT: external ear and nose normal, oropharynx normal Respiratory: + retractions (intermittent) and + uses accessory muscles (intermittent) Auscultation: + diminished lung sounds (significant/severe - right posterior chest); no crackles (b/l) and no wheezes course BS b/l Cardiovascular: Rate/Rhythm: regular rate and regular rhythm Heart Sounds: normal S1 and normal S2; no murmur Vessels: posterior tibial pulses present and dorsalis pedis pulses present; no JVD Extremities: no edema Gastrointestinal (Abdomen): normal bowel sounds, soft, nontender, no hepatosplenomegaly Neurologic: masked facies, low-pitched voice, rigidity Psychiatric: Orientation: alert; + not oriented x 3 Results & Data Vital Signs (Past 12 Hours) Vital Signs Temp Pulse Resp BP Pulse Ox 04/05/19 07:45 36.8 C 70 18 145/79 H 90 Laboratory Results Laboratory Results - last 24 hr 04/05/19 04/05/19 00:30 05:55 Creatinine 1.06 Est Cr Clr Drug Dosing 46.8 Est GFR ( Amer) 74.3 Est GFR (Non-Af Amer) 64.1 Vancomycin Trough 8.8 PG Care Time/CCT Total # of Minutes Spent Total Time Spent with Patient: Total time spent is greater than 50% in coordination of care (as documented) at patient's floor/unit and/or counseling patient: (1) Lung cancer Laterality: right Lung location: middle lobe of lung Qualified Code(s): C34.2 - Malignant neoplasm of middle lobe, bronchus or lung (2) GERD (gastroesophageal reflux disease) Esophagitis presence: esophagitis presence not specified Qualified Code(s): K21.9 - Gastro-esophageal reflux disease without esophagitis (3) Pneumonia Laterality: right Lung location: upper lobe of lung Pneumonia type: due to unspecified organism Qualified Code(s): J18.1 - Lobar pneumonia, unspecified organism
[2019-04-05] MEDS ORDERED: ONDANSETRON 4 MG OD TAB PO PRN (18:13)
[2019-04-05] MEDS: levoFLOXacin 750 MG TAB PO SCH (20:16)
[2019-04-05] MEDS: clonazePAM 0.5 MG TAB PO SCH (20:18)
[2019-04-05] MEDS: CARBIDOPA/LEVODOPA 50/200MG EXT REL TAB PO SCH (21:20)
[2019-04-06] MEDS: LORazepam 0.5 MG TAB SL PRN ×2 (06:37→19:02)
[2019-04-06] MEDS: CARBIDOPA/LEVODOPA 25/100MG TAB PO SCH ×4 (06:38→18:58)
[2019-04-06] MEDS: SELEGILINE HCL 5 MG TAB PO SCH ×2 (06:39→15:26)
[2019-04-06] MEDS: CARBIDOPA/LEVODOPA 25/100MG EXT REL TAB PO SCH ×4 (06:39→18:59)
[2019-04-06] MEDS: BISACODYL 10 MG SUPP PR SCH (07:43)
[2019-04-06] MEDS: NEUPRO TOP SCH ×2 (07:43→09:37)
[2019-04-06] MEDS: PANTOprazole 40 MG TAB PO SCH (07:44)
[2019-04-06] MEDS ORDERED: predniSONE 20 MG TAB PO SCH (09:00)
--- NOTE | 2019-04-06 20:39 | Hospitalist Progress Note ---
Date of Service April 06, 2019 Assessment & Plan (1) Acute respiratory failure with hypoxia: Likely combination of b/l pneumonia, bronchitis, +/- acute diastolic CHF in setting of lung cancer process. Suspect mostly a pneumonia as the primary culprit. s/p steroids, lasix, and antibiotics at time of admission. for now will continue antibiotics and prednisone as these may provide some element of comfort. cont to wean prednisone. since IV access has been lost will use PO levaquin x 5 more days. today is day #2/5. cont NC O2 - will need this at discharge. (2) Pneumonia: b/l, extensive, right lung > left lung. difficult to know how much of CT findings are lung ca and how much is infectious. as noted in "acute resp failure" above cont levaquin (day #2 of 5 today). post-obstructive pneumonia vs community-acquired vs aspiration. cont prednisone - wean. (3) Lung cancer: Known mass with decision to monitor over the last 2 years. No hx of chemo/radiation per pt preference. Follows with Dr. Garduno in the cancer clinic. Seen by palliative care this admission -- no plans for any treatment of cancer. Decision has been made to pursue formal hospice services at d/c. Continue palliative care pathway with rapid transition to comfort care measures if patient were to decline while hospitalized. Ordered roxanol for any pain/air hunger. Ativan SL available for anxiety/agitation. Cont NC O2. Cont dela cruz. (4) Parkinsons disease: severe. advanced. Pt has a complicated schedule of medications - continue them as these will provide comfort to him (if he is willing to take them). Seems to have dysphagia - in light of transitioning to hospice will not modify diet or liquids at this time. I have explained this in detail to pt's . (5) GERD (gastroesophageal reflux disease): continue PPI could switch to prevaci solutab if any difficulties swallowing (6) DVT prophylaxis: stopped lovenox since transitioning to hospice DNR all unnecessary meds (aspirin, supplements, etc) have been stopped focus on comfort, Rx of pneumonia, symptom control met with pt, his , and his children at bedside this afternoon very lenthy discussion (45 minutes) held with family see HPI for discussion contents all questions answered family ideally would like to get Mr Henriquez home with hospice they may need private duty nurses to fill in any caregiving gaps they would like to go w/ home nursing agency for hospice services total time today over 2 separate visits - 65 minutes Subjective 2 visits to pt's room today. first was on AM rounds; 2nd was later in the day. the pt's children were all present and assembled having [place] locations [place] the [place]. during the AM visit he was sleeping but easily woke up. he denied pain in any location. denied dyspnea. at bedside - she stated he had decent appetite, even ate pizza! family meeting late in the day was about 45 minutes. discussed palliative care/hospice, lung cancer, suspected pneumonia, disposition options (home with hospice, SNF with hospice, etc), private duty nursing, support systems, etc. numerous questions answered. throughout the day his O2 sats have been borderline low on NC O2 (often 88-90%). Review of Systems Constitutional: no fever Respiratory: + cough and + dyspnea Cardiovascular: no chest pain Gastrointestinal: no abdominal pain Physical Exam Constitutional: average body habitus and + frail appearing; no acute distress masked facies ENMT: external ear and nose normal, oropharynx normal Respiratory: Auscultation: + diminished lung sounds (significant/severe - right chest (ant and posterior)); no crackles (b/l) and no wheezes tachypnea Cardiovascular: Rate/Rhythm: regular rate and regular rhythm Heart Sounds: normal S1 and normal S2; no murmur Vessels: posterior tibial pulses present and dorsalis pedis pulses present; no JVD Extremities: no edema Gastrointestinal (Abdomen): normal bowel sounds, soft, nontender, no hepatosplenomegaly Psychiatric: Orientation: alert, oriented to person and oriented to place; + not oriented to time Results & Data Vital Signs (Past 12 Hours) Vital Signs Temp Pulse Resp BP Pulse Ox 04/06/19 16:28 36.4 C L 78 18 136/87 88 L PG Care Time/CCT Total # of Minutes Spent Total Time Spent with Patient: Total time spent is greater than 50% in coordination of care (as documented) at patient's floor/unit and/or counseling patient: (1) Lung cancer Laterality: right Lung location: middle lobe of lung Qualified Code(s): C34.2 - Malignant neoplasm of middle lobe, bronchus or lung (2) GERD (gastroesophageal reflux disease) Esophagitis presence: esophagitis presence not specified Qualified Code(s): K21.9 - Gastro-esophageal reflux disease without esophagitis (3) Pneumonia Laterality: right Lung location: upper lobe of lung Pneumonia type: due to unspecified organism Qualified Code(s): J18.1 - Lobar pneumonia, unspecified organism
[2019-04-06] MEDS: clonazePAM 0.5 MG TAB PO SCH (21:08)
[2019-04-06] MEDS: CARBIDOPA/LEVODOPA 50/200MG EXT REL TAB PO SCH (21:09)
[2019-04-07] MEDS: CARBIDOPA/LEVODOPA 25/100MG EXT REL TAB PO SCH ×3 (06:34→14:54)
[2019-04-07] MEDS: SELEGILINE HCL 5 MG TAB PO SCH ×2 (06:34→14:54)
[2019-04-07] MEDS: CARBIDOPA/LEVODOPA 25/100MG TAB PO SCH ×3 (06:35→14:55)
[2019-04-07] MEDS: NEUPRO TOP SCH (07:49)
[2019-04-07] MEDS: BISACODYL 10 MG SUPP PR SCH (07:50)
[2019-04-07] MEDS: PANTOprazole 40 MG TAB PO SCH (07:50)
[2019-04-07] MEDS ORDERED: RANITIDINE HCL SYRUP 150 MG/10 ML UDC PO PRN (08:41)
[2019-04-07] MEDS ORDERED: SIMETHICONE 80 MG CHEW PO PRN (08:41)
[2019-04-07] MEDS ORDERED: predniSONE 20 MG TAB PO SCH (09:00)
[2019-04-07] MEDS: levoFLOXacin 750 MG TAB PO SCH (11:23)
--- NOTE | 2019-04-07 12:45 | Discharge Summary ---
Date of Service April 07, 2019 Admission HPI Per Admitting Provider 83 y/o M who was sent to the ED by Dr. Garduno after being found to have low O2 sats in the office. Pt had followed with Dr. Garcia until he retired for a lung mass that was being monitored but pt and had decided to not pursue chemo or radiation. He had then been being followed by Chitra Capellan. Today, pt was seen for a routine appt with Dr. Garduno. This was their first appt with him. It was noted that pt was a bit SOB with prolonged walking to the exam room and O2 sats were checked. He was found to be in the mid 80s. Pt and both state that pt has had no SOB at home, either at rest or with ambulation. He ambulates with a walker, but states that they have a small home without stairs due to the mobility issues and so pt's usual ambulation is minimal. Pt has felt well overall. They had noted that he was having some "gurgling noises" in his upper throat when he would wake in the AM or from a nap, but these clear after he works on clearing his throat for several minutes. He has no issues swallowing food or choking. Pt denies fever, SOB, chest pain, abd pain, n/v/c/d, LE pain or swelling. states that they have denied what sounds like a bronchoscopy in the past due to concern over damage to his vocal cords in the setting of Parkinsons. Principal Diagnosis Hypoxia Discharge Exam Constitutional WD/WN, vitals as above Respiratory normal respiratory effort, lungs clear to auscultation Cardiovascular RRR, no murmur, no edema Gastrointestinal (Abdomen) normal bowel sounds, soft, nontender, no hepatosplenomegaly Musculoskeletal generalized weakness Skin no rashes, warm and dry Neurologic moves all extremities and awake Psychiatric A+Ox3, euthymic affect Discharge Data Allergies Allergy/AdvReac Type Severity Reaction Status Date / Time Penicillins Allergy Mild Verified 03/28/18 15:11 benztropine [From Cogentin] Allergy Confusion Unverified 04/03/19 13:44 entacapone [From Comtan] Allergy Unknown Unverified 04/03/19 13:44 Consultations 04/03/19 16:04 ED Decision to Admit Stat 04/03/19 18:11 Consult Case Management - Discharge Planning Routine 04/04/19 07:26 Consult Care Mgr Routine 04/04/19 08:03 Consult Palliative Care Routine Ordered Studies 04/03/19 12:51 CT angio chest PE protocol Stat Hospital Course (1) Acute respiratory failure with hypoxia: Likely combination of b/l pneumonia, bronchitis, +/- acute diastolic CHF in setting of lung cancer process. Suspect mostly a pneumonia as the primary culprit. s/p steroids, lasix, and antibiotics at time of admission. for now will continue antibiotics and prednisone as these may provide some element of comfort. cont to wean prednisone. since IV access has been lost will use PO levaquin x 5 more days. today is day #3/5 - 1 more dose outpatient for renal dosing cont NC O2 - will need this at discharge. (2) Pneumonia: b/l, extensive, right lung > left lung. difficult to know how much of CT findings are lung ca and how much is infectious. as noted in "acute resp failure" above cont levaquin (day #2 of 5 today). post-obstructive pneumonia vs community-acquired vs aspiration. cont prednisone - wean. (3) Lung cancer: Known mass with decision to monitor over the last 2 years. No hx of chemo/radiation per pt preference. Follows with Dr. Garduno in the cancer clinic. Seen by palliative care this admission -- no plans for any treatment of cancer. Decision has been made to pursue formal hospice services at d/c. Continue palliative care pathway with rapid transition to comfort care measures if patient were to decline while hospitalized. Ordered roxanol for any pain/air hunger. Ativan SL available for anxiety/agitation. Cont NC O2. Cont dela cruz. (4) Parkinsons disease: severe. advanced. Pt has a complicated schedule of medications - continue them as these will provide comfort to him (if he is willing to take them). Seems to have dysphagia - in light of transitioning to hospice will not modify diet or liquids at this time. I have explained this in detail to pt's . (5) GERD (gastroesophageal reflux disease): continue PPI could switch to prevacid solutab if any difficulties swallowing (6) DVT prophylaxis: stopped lovenox since transitioning to hospice DNR all unnecessary meds (aspirin, supplements, etc) have been stopped focus on comfort, Rx of pneumonia, symptom control family ideally would like to get Mr Henriquez home with hospice they may need private duty nurses to fill in any caregiving gaps they would like to go w/ home nursing agency for hospice services Total Time Total Time Spent Total Time Spent (In Minutes): greater than 30 minutes Discharge Plan Discharge Items Patient Disposition: Hospice - Home Reason For Visit: HYPOXIA Discharge Diagnosis: hypoxia Discharge Goals: Decrease discomfort Activity: Resume your previous activity Activity Comment: as tolerated Non-emergency contact: Primary Care Provider Call non-emergency contact if: you have any medication questions Follow-up/Referrals: Aureliano Banegas MD [Primary Care Provider] - Diet: Regular Addtl Provider Instructions: Please taper your prednisone as follows 60 mg daily x 3 days 40 mg daily x 3 days 20 mg daily x 3 days 10 mg daily x 3 days You may want to modify the texture/thickness of your diet for ease of swallowing as you discussed with Dr. Orlando . Thickening your liquids may help as may taking in easier to chew foods that are pureed, liquid or ground depending what makes swallowing easier for you. Prescriptions: New levofloxacin 750 mg Tablet 750 mg PO Q2D@1100 Qty: 1 RF: 0 lorazepam 0.5 mg tablet 0.5 mg PO Q4H PRN (Reason: anxiety) Qty: 20 RF: 0 morphine concentrate 100 mg/5 mL (20 mg/mL) solution 5 mg PO Q3H PRN (Reason: pain) Qty: 5 RF: 0 prednisone 20 mg tablet 20 mg PO DAILY Qty: 20 RF: 0 clonazepam 1 mg Tablet 0.5 mg PO HS Qty: 3 RF: 0 ondansetron 4 mg Tablet,Disintegrating 4 mg PO Q6H PRN (Reason: nausea and vomiting) Qty: 30 RF: 0 Continued carbidopa-levodopa 50-200 mg Tablet Extended Release 1 tab PO HS RF: 0 pantoprazole 20 mg tablet,delayed release (DR/EC) 20 mg PO DAILY RF: 0 bisacodyl [Dulcolax (bisacodyl)] 10 mg Suppository 10 mg [place] DAILY RF: 0 docusate sodium [Colace] 100 mg Capsule 100 mg PO BID RF: 0 selegiline HCl 5 mg capsule 5 mg PO BID RF: 0 calcium carbonate-vitamin D3 [Calcium 500 + D] 500 mg(1,250mg) -400 unit Tablet 1 tab PO DAILY RF: 0 Neupro 3 mg/24 hour Patch 24 Hour 1 patch TRANSDERMAL DAILY RF: 0 carbidopa-levodopa 25-100 mg tablet 2 tab PO QID@ RF: 0 carbidopa-levodopa 25-100 mg tablet extended release 1 tab PO QID@ RF: 0 Discontinued aspirin [Aspirin Low Dose] 81 mg Tablet,Delayed Release (Dr/Ec) 81 mg PO DAILY RF: 0 cholecalciferol (vitamin D3) [Vitamin D3] 2,000 unit Capsule 2,000 unit PO DAILY RF: 0 Stand-Alone Forms: [facility] Admission Data Admit Date/Time: 04/03/19 17:14 Attending Provider: Elpidio Gonsales Admit Provider: Leeanne Herrera Primary Care Provider: Aureliano Banegas V. Other Providers: Leeanne Herrera ; Michele Schulz ; Rand Grover ; Mark Orlando Service: Medical
[2019-04-07] MEDS: LORazepam 0.5 MG TAB SL PRN (14:56)
[2019-04-11] MEDS ORDERED: predniSONE 10 MG TABLET PO SCH (09:00)
== END 2019-04-07 15:23 | disposition hospice, home (50) | DRG 193 ==
LOC: ED 12:20 → 2W 17:14 → SUATTDRO 17:14 → 2W 17:44 → 1E 21:11 → 2W 04-04 18:52